=== PATIENT | male | born 1955 | race Caucasian/White ===

== ENCOUNTER 2018-11-19 16:08 | Inpatient (IN) | payer MEDICAID ==
[~2018-11-19] VITALS: Ht 152.4 cm; Wt 67.4 kg
[2018-11-19 16:10] VITALS: Ht 152.4 cm; Wt 67.4 kg
--- NOTE | 2018-11-19 17:53 | ERD ---
ER Documentation Chief Complaint Chief Complaint INGROWN TOE NAIL TO R BIG TOE HPI Patient is a Yakut speaking 63-year-old male with history of alcohol use several years ago presents to the ED with his sister with complaints of right toe pain. 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 He has tried applying himd-msa-[id number] creams and steroids as well as salt water baths without any relief. He states pain is worse when walking. He was seen at a clinic at a clinic this morning who referred him here to rule out gangrene and cellulitis of the big toe. 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 He denies any associated fevers, chills, drainage, numbness, tingling, focal weakness. Denies any chest pain, abdominal pain, shortness of breath, any other symptoms. Denies any trauma to his foot. ROS All systems reviewed and are negative except as per history of present illness. Allergies Allergies: Coded Allergies: No Known Allergy (Unverified , 11/19/18) PMhx/Soc Medical and Surgical Hx: pt denies Surgical Hx Hx Alcohol Use: Yes Physical Exam Vitals Vital Signs Date Temp Pulse Resp B/P (MAP) Pulse Ox O2 O2 Flow FiO2 Time Delivery Rate 11/19/18 98.0 78 18 160/80 99 16:10 (106) Physical Exam Const: No acute distress Head: Atraumatic Eyes: Normal Conjunctiva ENT: Normal External Ears, Nose and Mouth. Neck: Full range of motion. No meningismus. Resp: Clear to auscultation bilaterally Cardio: Regular rate and rhythm, no murmurs Abd: Soft, non tender, non distended. Normal bowel sounds Lower Extremity - right Skin: + Right big toe swelling with minimal warmth. Dark, overlying scab on superior aspect of big toe Compartments: Soft Motor: Full active range of motion hip/knee/ankle/foot Sensation: Intact to light touch FDWS/MF/LF/P surfaces. Bones: + Mild TTP of right big toe. Nontender pelvis/knee/proximal tibia/ malleoli Joints: No effusion or laxity Pulses/Perfusion: + Decreased DP/PT pulses. Cap refill < 2 seconds Back: No midline or flank tenderness Ext: No cyanosis, or edema Neur: Awake and alert Psych: Normal Mood and Affect Result Diagram: 11/19/18180111/19/18 180 Results 24 hrs Laboratory Tests Test 11/19/18 18:02 11/19/18 18:04 11/19/18 19:08 11/19/18 19:52 White Blood Count 9.4 10^3/ul Red Blood Count 4.81 10^6/ul Hemoglobin 13.9 g/dl Hematocrit 40.0 % Mean Corpuscular 83.2 fl Volume Mean Corpuscular 28.9 pg Hemoglobin Mean Corpuscular 34.8 g/dl Hemoglobin Concent Red Cell 11.7 % Distribution Width Platelet Count 191 10^3/UL Mean Platelet 12.0 fl Volume Immature 0.300 % Granulocytes % Neutrophils % 68.0 % Lymphocytes % 20.2 % Monocytes % 9.6 % Eosinophils % 1.6 % Basophils % 0.3 % Nucleated Red Blood 0.0 /100WBC Cells % Immature 0.030 10^3/ul Granulocytes # Neutrophils # 6.4 10^3/ul Lymphocytes # 1.9 10^3/ul Monocytes # 0.9 10^3/ul Eosinophils # 0.2 10^3/ul Basophils # 0.0 10^3/ul Nucleated Red Blood 0.0 10^3/ul Cells # Erythrocyte 50 mm/Hr Sedimentation Rate Prothrombin Time 11.9 Sec Prothrombin Time 0.9 Ratio INR International 0.87 Normalized Ratio Activated 22.5 Sec Partial Thromboplas t Time Sodium Level 131 mmol/L Potassium Level 4.4 mmol/L Chloride Level 95 mmol/L Carbon Dioxide 27 mmol/L Level Anion Gap 9 Blood Urea Nitrogen 24 mg/dl Creatinine 0.92 mg/dl Est Glomerular > 60 mL/min Filtrat Rate mL/min Glucose Level 452 mg/dl Calcium Level 9.5 mg/dl Total Bilirubin 0.1 mg/dl Direct Bilirubin 0.00 mg/dl Indirect Bilirubin 0.1 mg/dl Aspartate Amino 29 IU/L Transf (AST/SGOT) Alanine 23 IU/L Aminotransferase (A LT/SGPT) Alkaline 150 IU/L Phosphatase C-Reactive Protein 2.3 mg/dl Total Protein 7.5 g/dl Albumin 4.0 g/dl Globulin 3.50 g/dl Albumin/Globulin 1.14 Ratio POC Venous Lactate 1.4 mmol/L Bedside Glucose 388 mg/dL 329 mg/dL Test 2/15/19 20:52 Bedside Glucose 276 mg/dL Current Medications Medications Dose Sig/Sylvester Start Time Status Last (Trade) Ordered Route PRN Stop Time Admin Dose Reason Admin Sodium 1,000 ml @ Q1H STAT 11/19/18 DC 11/19/18 Chloride 1,000 mls/hr IV 18:40 19:24 11/19/18 19:39 Insulin 10 unit ONCE STAT 11/19/18 DC Human IVP 18:40 Regular 11/19/18 19:23 (Humulin R) Dextrose ONCE PRN 11/19/18 (D50w IV DECREASED 19:00 Syringe) GLUCOSE Insulin 10 unit ONCE ONCE 11/19/18 DC 11/19/18 Human SC 19:30 19:27 Regular 11/19/18 19:31 (Humulin R) Cefepime HCl 50 ml @ ONCE STAT 11/19/18 100 mls/hr IVPB 21:46 11/19/18 22:15 Vancomycin 250 ml @ ONCE ONCE 11/19/18 HCl 125 mls/hr IVPB 22:00 11/19/18 23:59 Procedures/MDM EMERGENT LABS AND DIAGNOSTIC STUDIES: Lab Results above were reviewed and interpreted by me as below. CBC: H/H of 13.9, 40 without no e/o of systemic infection or severe anemia CMP: Glucose 452. No e/o severe acidosis, alkalosis, renal failure, diabetic ketoacidosis, liver disease ESR: elevated, 50 Otherwise within normal limits, unremarkable or as documented above. Radiology Results as interpreted by Radiology: PROCEDURE: XR right Foot. CLINICAL INDICATION: r/o osteomyelitis TECHNIQUE: AP, lateral and oblique views of the right foot were obtained. The images were reviewed on a PACS workstation. COMPARISON: None. FINDINGS: No acute fracture is identified. No focal erosive changes are seen. Alignment and mineralization are normal. The joint spaces are preserved. No significant degenerative changes. Small bone spur seen at the plantar fascial insertion onto the calcaneus. Diffuse vascular atherosclerotic calcifications are noted. There is soft tissue swelling to the right great toe. IMPRESSION: Right great toe soft tissue swelling. No acute bony abnormality identified. Calcaneal bone spur. RPTAT:HCLE Electronically Signed By: Denzel King M.d 11/19/2018 6:59:00 PM Nursing Notes Reviewed. Previous Medical Records requested via the Electronic Health Record. EMERGENCY DEPARTMENT COURSE / MEDICAL DECISION MAKING: Patient is a Yakut-speaking 63-year-old male who is brought in by family with complaints of right toe swelling and pain. Patient went to an outside clinic earlier today and was subsequently sent here to rule out osteomyelitis and cell ulitis of the toe. On physical exam, patient does have evidence of soft tissue swelling and pain along with scab on the superior aspect of the right toe. X- ray of the toe was obtained revealing no acute abnormality. CBC showed no signs of infection, however ESR was elevated. He also did have some mild anemia. CMP showed signs of dehydration, and glucose was elevated at 452. Patient and family deny any known history of diabetes however patient has poor follow-up and does not see a regular doctor. And did not have any evidence of metabolic acidosis or DKA on labs. Patient was treated with IV fluids and also given 10 units of regular insulin in the ED. I spoke with family at bedside discussed options for admission for care and evaluation of his cellulitis as well as his new onset diabetes. Care was transferred to my surviving physician, Dr. Barrios, who will admit the patient. Patient is stable at time of admission. He was started on broad-spectrum IV antibiotics for prophylactic coverage. Departure Diagnosis: Primary Impression: Cellulitis of right toe Additional Impressions: Diabetes mellitus Anemia Condition: Fair DISHIGRIKIANSANTIAGO PA-C Nov 19, 2018 17:53
[2018-11-19] MEDS ORDERED: INSULIN REGULAR, HUMAN 100 UNIT/1 ML 3ML VIAL IVP STA (18:40)
[2018-11-19] MEDS ORDERED: SOD CHLORIDE 0.9% 1,000 ML IV STA (18:40)
[2018-11-19] MEDS ORDERED: DEXTROSE 50% 50 ML SYRINGE IV PRN (19:00)
[2018-11-19] MEDS ORDERED: INSULIN REGULAR, HUMAN 100 UNIT/1 ML 3ML VIAL SC ONE (19:30)
[2018-11-19] MEDS ORDERED: CEFEPIME 2GM/50 ML (PMX) 50 ML IVPB STA (21:46)
[2018-11-19] MEDS ORDERED: VANCOMYCIN 1 GM (PMX) 250 ML IVPB ONE (22:00)
--- NOTE | 2018-11-19 23:39 | EN ---
Date/Time of Note Date/Time of Note DATE: 11/19/18 TIME: 23:37 ER Progress Note I have discussed the patient along with the PA and/or [employer] provider. I agree with the evaluation and plan of care. Please see their documentation for full ER course and evaluation. In short: The patient was sent for evaluation of toe gangrene to rule out osteomyelitis Assessment and plan: The patient has elevated ESR and CRP. While this is a subacute process the patient has extremely poor primary care follow-up. The patient has hyperglycemia is not taking any medications. No evidence of DKA. Humalog provided. Patient given to broad-spectrum antibiotics. No evidence of sepsis. Inpatient hospitalization for MRI imaging, podiatry evaluation and primary care referral would be appropriate Accepting care team and consultations: I discussed the current laboratory data, diagnostic imaging and emergency care provided. Admitting team: Dr. Chao Admitting team indication: Insurance directed RAYO MERINO MD Nov 19, 2018 23:39
[2018-11-20] MEDS ORDERED: ONDANSETRON 4 MG INJ IV PRN
[2018-11-20] MEDS ORDERED: ACETAMINOPHEN 325 MG TAB PO PRN
[2018-11-20] MEDS: hydrALAzine 20 MG INJ IV PRN ×2 (03:57→21:53)
[2018-11-20 04:06] VITALS: BP 186/81; PULSE 71; RESP 18
[2018-11-20] MEDS ORDERED: SOD CHLORIDE 0.9% 1,000 ML IV SCH (04:06)
--- NOTE | 2018-11-20 04:22 | HP ---
Date/Time of Note Date/Time of Note DATE: 11/20/18 TIME: 04:22 Assessment/Plan VTE Prophylaxis Pharmacological prophylaxis: other Lines/Catheters IV Catheter Type (from Nrsg): Saline Lock Assessment/Plan Hospital Course Objective Physical exam General: Patient is laying in bed and answers questions appropriately Mentation: Patient is alert and oriented 4, Head: Normocephalic atraumatic Eyes: EOMI, pupils reactive to light Neck: Supple, nontender, midline Respiratory: Clear to auscultation bilaterally Cardiovascular: regular rate, no obvious murmurs Gastrointestinal: non-tender to palpation, bowel sounds heard. Neurological: Moves all extremities spontaneously Skin: Right great toe, black eschar Assessment and plan Right toe gangrene -X-ray done but not resulted, will also order MRI to rule out osteo- -IV antibiotic, it is recommended for day team to consult infectious disease -Day team will need to consult podiatry to evaluate toe. -Pain control Uncontrolled diabetes -Patient not on any medications, severely hyperglycemic however relatively asymptomatic -A1c is pending -Insulin sliding scale for now, adjust as needed Disposition -Day physician to consult podiatry and infectious disease and to follow-up with MRI. Result Diagram: 11/19/18 1802 11/19/18 1802 Results 24hrs Laboratory Tests Test 11/19/18 18:02 11/19/18 18:04 11/19/18 19:08 11/19/18 19:52 White Blood Count 9.4 Red Blood Count 4.81 Hemoglobin 13.9 L Hematocrit 40.0 L Mean Corpuscular 83.2 Volume Mean Corpuscular 28.9 L Hemoglobin Mean Corpuscular 34.8 Hemoglobin Concent Red Cell 11.7 Distribution Width Platelet Count 191 Mean Platelet Volume 12.0 H Immature 0.300 Granulocytes % Neutrophils % 68.0 Lymphocytes % 20.2 Monocytes % 9.6 Eosinophils % 1.6 Basophils % 0.3 Nucleated Red Blood 0.0 Cells % Immature 0.030 Granulocytes # Neutrophils # 6.4 Lymphocytes # 1.9 Monocytes # 0.9 Eosinophils # 0.2 Basophils # 0.0 Nucleated Red Blood 0.0 Cells # Erythrocyte 50 H Sedimentation Rate Prothrombin Time 11.9 Prothrombin Time 0.9 Ratio INR International 0.87 Normalized Ratio Activated 22.5 L Partial Thromboplast Time Sodium Level 131 L Potassium Level 4.4 Chloride Level 95 L Carbon Dioxide Level 27 Anion Gap 9 Blood Urea Nitrogen 24 H Creatinine 0.92 Est Glomerular > 60 Filtrat Rate mL/min Glucose Level 452 *H Calcium Level 9.5 Total Bilirubin 0.1 L Direct Bilirubin 0.00 Indirect Bilirubin 0.1 Aspartate Amino 29 Transf (AST/SGOT) Alanine 23 Aminotransferase (AL T/SGPT) Alkaline Phosphatase 150 H C-Reactive Protein 2.3 H Total Protein 7.5 Albumin 4.0 Globulin 3.50 H Albumin/Globulin 1.14 Ratio POC Venous Lactate 1.4 Bedside Glucose 388 H 329 H Test 11/19/18 20:52 11/19/18 21:57 11/20/18 03:56 Bedside Glucose 276 H 155 Lactic Acid Level 1.1 HPI/ROS Admit Date/Time Admit Date/Time Nov 19, 2018 at 23:36 Hx of Present Illness Patient is a male with no sniffing past medical history secondary to having no insurance not seeing doctors in many years who presents to [facility] after being sent by his clinic. Patient was urged to go to the clinic by his sister after he was suffering from an toe issue on his right great toe. Patient states that it began with redness and swelling to his right big toe approximately 3 weeks ago and he tried [id number] creams and steroids and it did not help. 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 Patient currently d enies any abdominal pain chest pain shortness of breath headache nausea, vomiting leg pain except for pain in the great toe. PMH/Family/Social Past Medical History Medications Current Medications Dextrose (D50w Syringe) ONCE PRN IV DECREASED GLUCOSE; Start 11/19/18 at 19:00 Ondansetron HCl (Zofran Inj) 4 mg BRIDGE ORDER PRN IV NAUSEA/VOMITING; Start 11/20/18 at 00:00; Stop 11/20/18 at 23:59 Acetaminophen (Tylenol Tab) 650 mg ER BRIDGE PRN PO .MILD PAIN 1-3 OR TEMP; Start 11/20/18 at 00:00; Stop 11/20/18 at 23:59 Hydralazine HCl (Apresoline) 10 mg Q4H PRN IV sbp>160 Last administered on 11/20/18at 03:57; Admin Dose 10 MG; Start 11/20/18 at 04:00 Cefepime HCl 50 ml @ 100 mls/hr Q12 IVPB ; Start 11/20/18 at 09:00; Status UNV Vancomycin HCl (Vanco Iv Per Pharmacy) VANCOMYCIN PER PHARMACY PER PROTOCOL XX ; Start 11/20/18 at 04:30; Status UNV Sodium Chloride 1,000 ml @ 50 mls/hr Q20H IV ; Start 11/20/18 at 04:06; Stop 11/21/18 at 00:05; Status UNV IV Flush (NS 3 ml) 3 ml PER PROTOCOL IV ; Start 11/20/18 at 04:30; Status UNV Ondansetron HCl (Zofran Inj) 4 mg Q6H PRN IV NAUSEA/VOMITING; Start 11/20/18 at 04:30; Status UNV Acetaminophen (Tylenol Tab) 650 mg Q6H PRN PO .PAIN 1-3 OR TEMP; Start 11/20/18 at 04:30; Status UNV Acetaminophen/ Hydrocodone Bitart ([place] (5/325)) 1 tab Q6H PRN PO .PAIN 4-6; Start 11/20/18 at 04:30; Status UNV Morphine Sulfate (morphine) 2 mg Q4H PRN IV .PAIN 7-10; Start 11/20/18 at 04:30; Status UNV Miscellaneous Information (* Miscellaneous Pharmacy Order) Discontinue current oral sulfonylur... ONCE ONCE XX ; Start 11/20/18 at 04:30; Stop 11/20/18 at 04:31; Status UNV Diagnostic Test (Pha) (Accu-Chek) 1 XX ; Start 11/21/18 at 02:00; Status UNV Miscellaneous Information (* Miscellaneous Pharmacy Order) HYPOGLYCEMIA PROTOCOL w... ONCE ONCE XX ; Start 11/20/18 at 04:30; Stop 11/20/18 at 04:31; Status UNV Insulin Aspart (Novolog Insulin Pen) NOVOLOG *MILD* ALGORITHM WITH MEALS BEDTIME SC ; Start 11/20/18 at 08:00; Status UNV Miscellaneous Information (* Miscellaneous Pharmacy Order) Discontinue all previ... ONCE ONCE XX ; Start 11/20/18 at 04:30; Stop 11/20/18 at 04:31; Status UNV Coded Allergies: No Known Allergy (Unverified , 11/19/18) Social History Smoking Status: Former smoker Exam/Review of Systems Vital Signs Vitals Vital Signs Date Temp Pulse Resp B/P (MAP) Pulse Ox O2 O2 Flow FiO2 Time Delivery Rate 11/20/18 97.8 71 18 186/81 95 04:06 (116) 11/20/18 Room Air 02:45 Intake and Output 11/19/18 11/19/18 11/20/18 1515:00 23:00 07:00 IntakeIntake Total 1050 ml 250 ml BalanceBalance 1050 ml 250 ml CICI ARVIZU Nov 20, 2018 04:22
[2018-11-20] MEDS ORDERED: morphine 2 MG INJ IV PRN (04:30)
[2018-11-20] MEDS ORDERED: GLUCOSE GEL 15 GRAM TUBE BUCCAL PRN (04:30)
[2018-11-20] MEDS ORDERED: GLUCAGON 1 MG INJ IM PRN (04:30)
[2018-11-20] MEDS ORDERED: GLUCOSE GEL 15 GRAM TUBE PO PRN ×2 (04:30)
[2018-11-20] MEDS ORDERED: VANCOMYCIN IV PER PHARMACY XX SCH (04:30)
[2018-11-20] MEDS ORDERED: NACL 0.9% 3 ML SYG IV SCH (04:30)
[2018-11-20] MEDS ORDERED: DEXTROSE 50% 50 ML SYRINGE IV PRN ×2 (04:30)
[2018-11-20] MEDS: INSULIN ASPART [NOVOLOG] 3 ML PEN SC SCH ×4 (08:00→20:48)
[2018-11-20 08:14] VITALS: BP 165/72; PULSE 87; RESP 18
[2018-11-20] MEDS: CEFEPIME 1GM/50 ML (PMX) 50 ML IVPB SCH ×2 (08:18→20:48)
[2018-11-20] MEDS: VANCOMYCIN 1 GM 250 ML IVPB SCH ×2 (10:08→21:51)
--- NOTE | 2018-11-20 10:42 | PN ---
Date/Time of Note Date/Time of Note DATE: 11/20/18 TIME: 10:38 Assessment/Plan VTE Prophylaxis SCD contraindicated: low risk/ambulating Pharmacological prophylaxis: heparin Lines/Catheters IV Catheter Type (from Nrs): Saline Lock Assessment/Plan Problems: (1) Cellulitis of right toe Status: Acute Comment: He actually has a gangrenous tip of the toe. I have contacted podiatry who will see him. This should be able to be cleaned up and treated as an outpatient relatively quickly. (2) Diabetes mellitus Status: Acute Comment: I will try and get his sugars under better control. He has not been on any medicines as an outpatient. Qualifiers: Diabetes mellitus type: type 2 Diabetes mellitus mcc insulin use: without buttermaker use Diabetes mellitus complication status: with neurologic complications Diabetes mellitus complication detail: with polyneuropathy Qualified Codes: E11.42 - Type 2 diabetes mellitus with diabetic polyneuropathy (3) Anemia Status: Acute Comment: This will be worked up Result Diagram: 11/20/18 0518 11/20/18 0559 Results 24hrs Laboratory Tests Test 11/19/18 18:02 11/19/18 18:04 11/19/18 19:08 11/19/18 19:52 White Blood Count 9.4 Red Blood Count 4.81 Hemoglobin 13.9 L Hematocrit 40.0 L Mean Corpuscular 83.2 Volume Mean Corpuscular 28.9 L Hemoglobin Mean Corpuscular 34.8 Hemoglobin Concent Red Cell 11.7 Distribution Width Platelet Count 191 Mean Platelet Volume 12.0 H Immature 0.300 Granulocytes % Neutrophils % 68.0 Lymphocytes % 20.2 Monocytes % 9.6 Eosinophils % 1.6 Basophils % 0.3 Nucleated Red Blood 0.0 Cells % Immature 0.030 Granulocytes # Neutrophils # 6.4 Lymphocytes # 1.9 Monocytes # 0.9 Eosinophils # 0.2 Basophils # 0.0 Nucleated Red Blood 0.0 Cells # Erythrocyte 50 H Sedimentation Rate Prothrombin Time 11.9 Prothrombin Time 0.9 Ratio INR International 0.87 Normalized Ratio Activated 22.5 L Partial Thromboplast Time Sodium Level 131 L Potassium Level 4.4 Chloride Level 95 L Carbon Dioxide Level 27 Anion Gap 9 Blood Urea Nitrogen 24 H Creatinine 0.92 Est Glomerular > 60 Filtrat Rate mL/min Glucose Level 452 *H Calcium Level 9.5 Total Bilirubin 0.1 L Direct Bilirubin 0.00 Indirect Bilirubin 0.1 Aspartate Amino 29 Transf (AST/SGOT) Alanine 23 Aminotransferase (AL T/SGPT) Alkaline Phosphatase 150 H C-Reactive Protein 2.3 H Total Protein 7.5 Albumin 4.0 Globulin 3.50 H Albumin/Globulin 1.14 Ratio POC Venous Lactate 1.4 Bedside Glucose 388 H 329 H Test 11/19/18 20:52 11/19/18 21:57 11/20/18 03:56 11/20/18 05:18 Bedside Glucose 276 H 155 Lactic Acid Level 1.1 White Blood Count 8.6 Red Blood Count 4.23 L Hemoglobin 12.3 L Hematocrit 35.3 L Mean Corpuscular 83.5 Volume Mean Corpuscular 29.1 Hemoglobin Mean Corpuscular 34.8 Hemoglobin Concent Red Cell 11.7 Distribution Width Platelet Count 156 Mean Platelet Volume 11.8 H Immature 0.500 H Granulocytes % Neutrophils % 65.8 Lymphocytes % 21.7 Monocytes % 9.1 Eosinophils % 2.4 Basophils % 0.5 Nucleated Red Blood 0.0 Cells % Immature 0.040 H Granulocytes # Neutrophils # 5.7 Lymphocytes # 1.9 Monocytes # 0.8 Eosinophils # 0.2 Basophils # 0.0 Nucleated Red Blood 0.0 Cells # Test 11/20/18 05:59 11/20/18 07:53 Sodium Level 135 Potassium Level 3.9 Chloride Level 98 Carbon Dioxide Level 28 Anion Gap 9 Blood Urea Nitrogen 17 Creatinine 0.89 Est Glomerular > 60 Filtrat Rate mL/min Glucose Level 310 H Calcium Level 8.6 Magnesium Level 1.4 L Total Bilirubin 0.3 Direct Bilirubin 0.00 Indirect Bilirubin 0.3 Aspartate Amino 18 Transf (AST/SGOT) Alanine 27 Aminotransferase (AL T/SGPT) Alkaline Phosphatase 75 Total Protein 6.1 # Albumin 3.0 #L Globulin 3.10 Albumin/Globulin 0.96 Ratio Triglycerides Level 123 Cholesterol Level 131 LDL Cholesterol, 80 Calculated HDL Cholesterol 26 L Cholesterol/HDL 5.0 Ratio Thyroid Stimulating 2.870 Hormone (TSH) Bedside Glucose 294 H Subjective 24 Hr Interval Summary Free Text/Dictation Patient was admitted essentially for poor sugar control and of the gangrenous tip of the toe. Constitutional: no complaints Respiratory: no complaints Cardiovascular: no complaints Gastrointestinal: no complaints Genitourinary: no complaints Exam/Review of Systems Exam Vitals Vital Signs Date Temp Pulse Resp B/P (MAP) Pulse Ox O2 O2 Flow FiO2 Time Delivery Rate 11/20/18 98.5 87 18 165/72 90 08:14 (103) 11/20/18 Room Air 02:45 Intake and Output 11/19/18 11/19/18 11/20/18 1515:00 23:00 07:00 IntakeIntake Total 1050 ml 250 ml BalanceBalance 1050 ml 250 ml Constitutional: alert, oriented Respiratory: clear to auscultation, normal air movement Cardiovascular: regular rate and rhythm, nl pulses Gastrointestinal: soft, nl liver, spleen, non-tender Results Results 24hrs Laboratory Tests Test 11/19/18 18:02 11/19/18 18:04 11/19/18 19:08 11/19/18 19:52 White Blood Count 9.4 Red Blood Count 4.81 Hemoglobin 13.9 L Hematocrit 40.0 L Mean Corpuscular 83.2 Volume Mean Corpuscular 28.9 L Hemoglobin Mean Corpuscular 34.8 Hemoglobin Concent Red Cell 11.7 Distribution Width Platelet Count 191 Mean Platelet Volume 12.0 H Immature 0.300 Granulocytes % Neutrophils % 68.0 Lymphocytes % 20.2 Monocytes % 9.6 Eosinophils % 1.6 Basophils % 0.3 Nucleated Red Blood 0.0 Cells % Immature 0.030 Granulocytes # Neutrophils # 6.4 Lymphocytes # 1.9 Monocytes # 0.9 Eosinophils # 0.2 Basophils # 0.0 Nucleated Red Blood 0.0 Cells # Erythrocyte 50 H Sedimentation Rate Prothrombin Time 11.9 Prothrombin Time 0.9 Ratio INR International 0.87 Normalized Ratio Activated 22.5 L Partial Thromboplast Time Sodium Level 131 L Potassium Level 4.4 Chloride Level 95 L Carbon Dioxide Level 27 Anion Gap 9 Blood Urea Nitrogen 24 H Creatinine 0.92 Est Glomerular > 60 Filtrat Rate mL/min Glucose Level 452 *H Calcium Level 9.5 Total Bilirubin 0.1 L Direct Bilirubin 0.00 Indirect Bilirubin 0.1 Aspartate Amino 29 Transf (AST/SGOT) Alanine 23 Aminotransferase (AL T/SGPT) Alkaline Phosphatase 150 H C-Reactive Protein 2.3 H Total Protein 7.5 Albumin 4.0 Globulin 3.50 H Albumin/Globulin 1.14 Ratio POC Venous Lactate 1.4 Bedside Glucose 388 H 329 H Test 11/19/18 20:52 11/19/18 21:57 11/20/18 03:56 11/20/18 05:18 Bedside Glucose 276 H 155 Lactic Acid Level 1.1 White Blood Count 8.6 Red Blood Count 4.23 L Hemoglobin 12.3 L Hematocrit 35.3 L Mean Corpuscular 83.5 Volume Mean Corpuscular 29.1 Hemoglobin Mean Corpuscular 34.8 Hemoglobin Concent Red Cell 11.7 Distribution Width Platelet Count 156 Mean Platelet Volume 11.8 H Immature 0.500 H Granulocytes % Neutrophils % 65.8 Lymphocytes % 21.7 Monocytes % 9.1 Eosinophils % 2.4 Basophils % 0.5 Nucleated Red Blood 0.0 Cells % Immature 0.040 H Granulocytes # Neutrophils # 5.7 Lymphocytes # 1.9 Monocytes # 0.8 Eosinophils # 0.2 Basophils # 0.0 Nucleated Red Blood 0.0 Cells # Test 11/20/18 05:59 11/20/18 07:53 Sodium Level 135 Potassium Level 3.9 Chloride Level 98 Carbon Dioxide Level 28 Anion Gap 9 Blood Urea Nitrogen 17 Creatinine 0.89 Est Glomerular > 60 Filtrat Rate mL/min Glucose Level 310 H Calcium Level 8.6 Magnesium Level 1.4 L Total Bilirubin 0.3 Direct Bilirubin 0.00 Indirect Bilirubin 0.3 Aspartate Amino 18 Transf (AST/SGOT) Alanine 27 Aminotransferase (AL T/SGPT) Alkaline Phosphatase 75 Total Protein 6.1 # Albumin 3.0 #L Globulin 3.10 Albumin/Globulin 0.96 Ratio Triglycerides Level 123 Cholesterol Level 131 LDL Cholesterol, 80 Calculated HDL Cholesterol 26 L Cholesterol/HDL 5.0 Ratio Thyroid Stimulating 2.870 Hormone (TSH) Bedside Glucose 294 H Medications Medication Current Medications Hydralazine HCl (Apresoline) 10 mg Q4H PRN IV sbp>160 Last administered on 11/20/18at 03:57; Admin Dose 10 MG; Start 11/20/18 at 04:00 Cefepime HCl 50 ml @ 100 mls/hr Q12 IVPB Last administered on 11/20/18at 08:18; Admin Dose 100 MLS/HR; Start 11/20/18 at 09:00 Vancomycin HCl (Vanco Iv Per Pharmacy) VANCOMYCIN PER PHARMACY PER PROTOCOL XX ; Start 11/20/18 at 04:30 Sodium Chloride 1,000 ml @ 50 mls/hr Q20H IV Last administered on 11/20/18at 05:07; Admin Dose 50 MLS/HR; Start 11/20/18 at 04:06; Stop 11/21/18 at 00:05 IV Flush (NS 3 ml) 3 ml PER PROTOCOL IV ; Start 11/20/18 at 04:30 Ondansetron HCl (Zofran Inj) 4 mg Q6H PRN IV NAUSEA/VOMITING; Start 11/20/18 at 04:30 Acetaminophen (Tylenol Tab) 650 mg Q6H PRN PO .PAIN 1-3 OR TEMP; Start 11/20/18 at 04:30 Acetaminophen/ Hydrocodone Bitart ([place] (5/325)) 1 tab Q6H PRN PO .PAIN 4-6; Start 11/20/18 at 04:30 Morphine Sulfate (morphine) 2 mg Q4H PRN IV .PAIN 7-10; Start 11/20/18 at 04:30 Diagnostic Test (Pha) (Accu-Chek) 1 ea 02 XX ; Start 11/21/18 at 02:00 Insulin Aspart (Novolog Insulin Pen) NOVOLOG *MILD* ALGORITHM WITH MEALS BEDTIME SC Last administered on 11/20/18at 08:00; Admin Dose 4 UNIT; Start 11/20/18 at 08:00 Miscellaneous Information 1 ea NOTE XX ; Start 11/20/18 at 04:30 Glucose (Glutose) 15 gm Q15M PRN PO DECREASED GLUCOSE; Start 11/20/18 at 04:30 Glucose (Glutose) 22.5 gm Q15M PRN PO DECREASED GLUCOSE; Start 11/20/18 at 04:30 Dextrose (D50w Syringe) 25 ml Q15M PRN IV DECREASED GLUCOSE; Start 11/20/18 at 04:30 Dextrose (D50w Syringe) 50 ml Q15M PRN IV DECREASED GLUCOSE; Start 11/20/18 at 04:30 Glucagon (Glucagen) 1 mg Q15M PRN IM DECREASED GLUCOSE; Start 11/20/18 at 04:30 Glucose (Glutose) 15 gm Q15M PRN BUCCAL DECREASED GLUCOSE; Start 11/20/18 at 04:30 Vancomycin HCl 250 ml @ 125 mls/hr Q12H IVPB Last administered on 11/20/18at 10:08; Admin Dose 125 MLS/HR; Start 11/20/18 at 10:00 KARI YOON MD Nov 20, 2018 10:42
[2018-11-20] MEDS: ACCU-CHEK XX SCH ×3 (11:30→20:48)
[2018-11-20] MEDS: NATEGLINIDE 120 MG TAB PO SCH ×2 (12:31→17:29)
[2018-11-20] MEDS: metFORMIN 850 MG TAB PO SCH ×2 (12:31→17:28)
--- NOTE | 2018-11-20 18:40 | CONS ---
DATE OF ADMISSION: 11/19/2018 DATE OF CONSULTATION: 11/20/2018 REASON FOR CONSULTATION: Right foot cutaneous ulceration with gangrene. HISTORY OF PRESENT ILLNESS: This is a 63-year-old gentleman who states he was working in his garden and resulted in swelling, redness, now with black colored tissue and brought in due to failing outpat ient self-treatments. PAST MEDICAL HISTORY: Includes diabetes type 2 with peripheral neuropathy, anemia. MEDICATIONS: Includes vancomycin, cefepime. 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 PHYSICAL EXAMINATION: VITAL SIGNS: Temperature is 98.5, pulse is 87, respiratory rate is 18, blood pressure is 165/72, pul se ox is 98%. GENERAL: The patient is alert, oriented, no acute distress. Regular respiration. HEENT: Head is normocephalic. Trachea midline. EXTREMITIES: The patient with a nonpalpable PT, DP or popliteal pulse. The DP artery on the right f oot is palpable and heavily calcified. There is a cutaneous gangrene of the right hallux distal aspe ct measuring approximately 2 x 1 cm depth that is undetermined, but well adhered. No cellulitis. No malodor. No active drainage. There is pain with palpation. No instability of the hallux at the IP J or MPJ. LABORATORIES: WBC 8.6, hemoglobin 12.3, hematocrit 35.3, platelets 156. Sed rate is 50. Sodium 135 , potassium 3.9, chloride 98, CO2 28, BUN 17, creatinine is 0.89. X-rays pending. MRI pending. Non invasive is pending. ASSESSMENT: 1. Right foot cutaneous ulceration with gangrene. Differential diagnosis osteomyelitis, distal phal anx. 2. Diabetes type 2 with peripheral neuropathy. 3. Peripheral arterial disease. PLAN: H and P reviewed. Continue empiric antibiotics. No fluid available for culture. Imaging tara dies ordered and pending. Recommend obtaining arterial noninvasives. If no radiographic evidence of osteomyelitis, no surgery planned. Further recommendations regarding wound healing potential with v ascular studies given decreased pulses, would benefit from a vascular consultation. Nursing recommen dations are given for local wound care. Given diabetic history and ulceration, would benefit from ou tpatient followup. Recommend case management assistance to assist with continuity of care and insura nce assignment. Dictated By: JAY JAY MONSIVAIS DPM RB/NTS Conf#: [id number] DID#: [id number] CC: CICI ARVIZU MD;*End*
[2018-11-20 21:05] VITALS: BP 192/85; PULSE 80; RESP 16
[2018-11-20 22:00] VITALS: BP 143/65; PULSE 77
[2018-11-21] MEDS ORDERED: traZODone 50 MG TAB PO PRN (00:40)
[2018-11-21 02:00] VITALS: BP 154/70; PULSE 79; RESP 18
[2018-11-21] MEDS: ACCU-CHEK XX SCH ×5 (02:00→21:06)
[2018-11-21 08:03] VITALS: BP 165/72; PULSE 73; RESP 16
[2018-11-21] MEDS: NATEGLINIDE 120 MG TAB PO SCH ×3 (08:09→17:40)
[2018-11-21] MEDS: GENTAMICIN 0.1% 15 GM OINT TOP SCH (08:09)
[2018-11-21] MEDS: CEFEPIME 1GM/50 ML (PMX) 50 ML IVPB SCH ×2 (08:09→21:03)
[2018-11-21] MEDS: metFORMIN 850 MG TAB PO SCH ×2 (08:09→17:40)
[2018-11-21] MEDS: SODIUM HYPOCHLORITE (1/40) 1 APPLIC BTL IRR SCH (08:09)
[2018-11-21] MEDS: INSULIN ASPART [NOVOLOG] 3 ML PEN SC SCH ×4 (08:11→21:00)
--- NOTE | 2018-11-21 09:43 | PN ---
Date/Time of Note Date/Time of Note DATE: 11/21/18 TIME: 09:40 Assessment/Plan VTE Prophylaxis Risk score (from Ns)>0 risk: 2 SCD applied (from Ns): Yes Pharmacological prophylaxis: heparin Lines/Catheters IV Catheter Type (from [facility]): Peripheral IV Assessment/Plan Problems: (1) Toe gangrene Status: Acute Comment: Dry gangrene with no obvious site of infection. This should be able to be managed as an outpatient but we may need to make sure that nothing falls through the cracks in this gentleman. In addition he has evidence of peripheral vascular disease. Please see below. Management to assist with making sure that we have things lined up so that he can be seen as an outpatient (2) Peripheral vascular disease due to secondary diabetes Status: Chronic Comment: Even though he is very good cholesterol is is can be placed on low- dose statin therapy for this. In addition we will try and tighten up his blood pressure control, and his diabetic control. (3) Essential hypertension Status: Chronic Comment: DEQUAN inhibitor and if possible we will add in alpha-salina medication for blood pressure pending at this time of the results of postvoid residual (4) Diabetes mellitus Status: Acute Comment: He is getting very good control on a fairly simple regimen. This should be able to be transmitted as an outpatient without great difficulty and the medications are not expensive. 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 use Diabetes mellitus complication status: with neurologic co mplications Diabetes mellitus complication detail: with polyneuropathy Qualified Codes: E11.42 - Type 2 diabetes mellitus with diabetic polyneuropathy (5) Anemia Status: Acute Comment: Initial evaluation Qualifiers: Anemia type: unspecified type Qualified Codes: D64.9 - Anemia, unspecified Result Diagram: 11/20/18 0518 11/20/18 0559 Results 24hrs Laboratory Tests Test 11/20/18 12:28 11/20/18 17:25 11/20/18 20:47 11/21/18 08:08 Bedside Glucose 230 H 207 151 176 Test 11/21/18 08:51 Vancomycin Level 9.4 L Trough Subjective 24 Hr Interval Summary Free Text/Dictation He reports his foot is a little bit better. Constitutional: no complaints (No fevers chills or sweats) Respiratory: no complaints Cardiovascular: no complaints Gastrointestinal: no complaints Musculoskeletal: no complaints Endocrine: no complaints Exam/Review of Systems Exam Vitals Vital Signs Date Temp Pulse Resp B/P (MAP) Pulse Ox O2 O2 Flow FiO2 Time Delivery Rate 11/21/18 98.6 73 16 165/72 95 08:03 (103) 11/20/18 Room Air 02:45 Intake and Output 11/20/18 11/20/18 11/21/18 1515:00 23:00 07:00 IntakeIntake Total 1410 ml 1070 ml 250 ml OutputOutput Total 150 ml BalanceBalance 1260 ml 1070 ml 250 ml Constitutional: alert, oriented Respiratory: clear to auscultation, normal air movement Cardiovascular: regular rate and rhythm, nl pulses Gastrointestinal: soft, nl liver, spleen, non-tender Musculoskeletal: other (Gangrene distal tip of right great toe-dry) Results Results 24hrs Laboratory Tests Test 11/20/18 12:28 11/20/18 17:25 11/20/18 20:47 11/21/18 08:08 Bedside Glucose 230 H 207 151 176 Test 11/21/18 08:51 Vancomycin Level 9.4 L Trough Medications Medication Current Medications Hydralazine HCl (Apresoline) 10 mg Q4H PRN IV sbp>160 Last administered on 11/20/18at 21:53; Admin Dose 10 MG; Start 11/20/18 at 04:00 Cefepime HCl 50 ml @ 100 mls/hr Q12 IVPB Last administered on 11/21/18at 08:09; Admin Dose 100 MLS/HR; Start 11/20/18 at 09:00 Vancomycin HCl (Vanco Iv Per Pharmacy) VANCOMYCIN PER PHARMACY PER PROTOCOL XX ; Start 11/20/18 at 04:30 IV Flush (NS 3 ml) 3 ml PER PROTOCOL IV ; Start 11/20/18 at 04:30 Ondansetron HCl (Zofran Inj) 4 mg Q6H PRN IV NAUSEA/VOMITING; Start 11/20/18 at 04:30 Acetaminophen (Tylenol Tab) 650 mg Q6H PRN PO .PAIN 1-3 OR TEMP; Start 11/20/18 at 04:30 Acetaminophen/ Hydrocodone Bitart ([place] (5/325)) 1 tab Q6H PRN PO .PAIN 4-6; Start 11/20/18 at 04:30 Morphine Sulfate (morphine) 2 mg Q4H PRN IV .PAIN 7-10; Start 11/20/18 at 04:30 Diagnostic Test (Pha) (Accu-Chek) 1 ea 02 XX ; Start 11/21/18 at 02:00 Insulin Aspart (Novolog Insulin Pen) NOVOLOG *MILD* ALGORITHM WITH MEALS BEDTIME SC Last administered on 11/21/18at 08:11; Admin Dose 1 UNIT; Start 11/20/18 at 08:00 Miscellaneous Information 1 ea NOTE XX ; Start 11/20/18 at 04:30 Glucose (Glutose) 15 gm Q15M PRN PO DECREASED GLUCOSE; Start 11/20/18 at 04:30 Glucose (Glutose) 22.5 gm Q15M PRN PO DECREASED GLUCOSE; Start 11/20/18 at 04:30 Dextrose (D50w Syringe) 25 ml Q15M PRN IV DECREASED GLUCOSE; Start 11/20/18 at 04:30 Dextrose (D50w Syringe) 50 ml Q15M PRN IV DECREASED GLUCOSE; Start 11/20/18 at 04:30 Glucagon (Glucagen) 1 mg Q15M PRN IM DECREASED GLUCOSE; Start 11/20/18 at 04:30 Glucose (Glutose) 15 gm Q15M PRN BUCCAL DECREASED GLUCOSE; Start 11/20/18 at 04:30 Vancomycin HCl 250 ml @ 125 mls/hr Q12H IVPB Last administered on 11/20/18at 21:51; Admin Dose 125 MLS/HR; Start 11/20/18 at 10:00 Metformin HCl (Glucophage) 850 mg BID WITH MEALS PO Last administered on 11/21/18at 08:09; Admin Dose 850 MG; Start 11/20/18 at 11:00 Diagnostic Test (Pha) (Accu-Chek) 1 ea AC MEALS AND BEDTIME XX Last administered on 11/20/18at 20:48; Admin Dose 1 EA; Start 11/20/18 at 11:30 Nateglinide (Starlix) 120 mg AC MEALS PO Last administered on 11/21/18at 08:09; Admin Dose 120 MG; Start 11/20/18 at 11:30 Sodium Hypochlorite (Dakin'S (Dilute )) 1 applic DAILY IRR Last administered on 11/21/18at 08:09; Admin Dose 1 APPLIC; Start 11/21/18 at 09:00 Gentamicin Sulfate (Gentamicin 0.1% Oint) 1 applic DAILY TOP Last administered on 11/21/18at 08:09; Admin Dose 1 APPLIC; Start 11/21/18 at 09:00 Trazodone HCl (Desyrel) 50 mg HS PRN PO INSOMNIA; Start 11/21/18 at 00:40 Lisinopril (Zestril) 10 mg DAILY PO ; Start 11/21/18 at 10:00; Status KARI MORTON MD Nov 21, 2018 09:43
[2018-11-21] MEDS: VANCOMYCIN 1 GM 250 ML IVPB SCH (09:56)
[2018-11-21] MEDS: LISINOPRIL 10 MG TAB PO SCH (09:57)
[2018-11-21] MEDS ORDERED: SOD CHLORIDE 0.45% 1,000 ML IV SCH (10:00)
[2018-11-21] MEDS: HYDROCODONE/APAP (5/325) TAB PO PRN ×2 (10:09→21:42)
[2018-11-21 14:24] VITALS: BP 128/59; PULSE 76; RESP 16
[2018-11-21 20:00] VITALS: BP_SYST 120; BP_SYST 160; BP_DIAS 73; BP_DIAS 80; PULSE 78; RESP 18
[2018-11-21] MEDS: ATORVASTATIN 10 MG TAB PO SCH (21:06)
[2018-11-21] MEDS: VANCOMYCIN HCL 1.25 GM in SOD CHLORIDE 0.9% 250 ML IVPB SCH (21:42)
[2018-11-22 02:00] VITALS: BP 147/90; PULSE 68; RESP 18
[2018-11-22] MEDS: ACCU-CHEK XX SCH ×5 (02:00→20:20)
[2018-11-22 07:22] VITALS: BP 174/82; PULSE 72; RESP 16
[2018-11-22] MEDS: metFORMIN 850 MG TAB PO SCH ×2 (08:01→17:38)
[2018-11-22] MEDS: NATEGLINIDE 120 MG TAB PO SCH ×3 (08:01→17:36)
[2018-11-22] MEDS: INSULIN ASPART [NOVOLOG] 3 ML PEN SC SCH ×4 (08:02→20:20)
[2018-11-22] MEDS: LISINOPRIL 10 MG TAB PO SCH (08:03)
[2018-11-22] MEDS: CEFEPIME 1GM/50 ML (PMX) 50 ML IVPB SCH ×2 (08:04→20:15)
[2018-11-22] MEDS: GENTAMICIN 0.1% 15 GM OINT TOP SCH (08:06)
[2018-11-22] MEDS: SODIUM HYPOCHLORITE (1/40) 1 APPLIC BTL IRR SCH (08:06)
--- NOTE | 2018-11-22 08:48 | CONS ---
DATE OF ADMISSION: 11/19/2018 DATE OF CONSULTATION: 11/22/2018 REFERRING PHYSICIAN: Dr. Dru Baugh. REASON FOR CONSULTATION: Right first toe tip dry gangrene. HISTORY OF PRESENT ILLNESS: This is a 63-year-old gentleman. He basically does not get any outside medical care. He presented with 3 weeks of dry gangrene of the tip of the right great toe. He denie s being diabetic, although he is diabetic. He denies smoking. He has no pain in the toe. His gluco se was 452, so he is definitely diabetic despite the fact that he denies it. PAST MEDICAL HISTORY: Significant for untreated diabetes, peripheral arterial disease. PAST SURGICAL HISTORY: He has never had any surgery in the past. MEDICATIONS: Consist of: 1. Vancomycin. 2. Lipitor. 3. Zestril. 4. Trazodone. 5. Starlix. 6. Dakin's. 7. Gentamicin ointment. 8. Insulin. 9. Metformin. 10. Cefepime. ALLERGIES: NO KNOWN DRUG ALLERGIES. SOCIAL HISTORY: He denies smoking. He does not drink or use any illicit drugs. REVIEW OF SYSTEMS: He denies any chest pain, shortness of breath, nausea, vomiting, diarrhea. No fe aime, no chills, no recent weight gain or weight loss. FAMILY HISTORY: Noncontributory. PHYSICAL EXAMINATION: GENERAL: He is a middle-aged gentleman. He is in no acute distress. VITAL SIGNS: He has been afebrile. His blood pressure is 174/82, heart rate 72, respiratory rate 16 , he is 97% sat on room air. NECK: 2+ carotid, radial and brachial pulses bilaterally. LUNGS: Clear. HEART: Regular rate and rhythm. ABDOMEN: Soft, nontender, nondistended. EXTREMITIES: He has 2+ femoral and popliteal pulses bilaterally. I do not feel DP or PT pulses in e ither lower extremity. He has dry gangrene of the tip of the right great toe. It is just the very d istal tip of the toe. He had arterial studies that showed monophasic tibial flow bilaterally suggest ing tibial disease. There is no stenosis noted and there is good flow down into the pop bilaterally. IMPRESSION: Dry gangrene of the right first toe in the setting of tibial disease. It is very dry cu rrently. I agree with the doctors to be dealt with it as an outpatient that can be set up with a fol lowup visit in the [facility]. I will see him along with Dr. Rothman. He will need an angiogram eventual ly, but there are no acute findings, no signs of any ischemia or any infection at present. Dictated By: CONSUELO BEACH/EVELYN Conf#: [id number] DID#: [id number] CC: CHRISTOPHE ROTHMAN MD; CONSUELO PATRICK MD; DRU BAUGH MD; CICI ARVIZU MD;*EndCC*
[2018-11-22] MEDS: HYDROCODONE/APAP (5/325) TAB PO PRN ×2 (09:29→20:14)
[2018-11-22] MEDS: VANCOMYCIN HCL 1.25 GM in SOD CHLORIDE 0.9% 250 ML IVPB SCH ×2 (09:29→22:22)
[2018-11-22 14:08] VITALS: BP 175/81; PULSE 76; RESP 16
--- NOTE | 2018-11-22 15:25 | PN ---
Date/Time of Note Date/Time of Note DATE: 11/22/18 TIME: 15:20 Assessment/Plan VTE Prophylaxis Risk score (from Ns)>0 risk: 3 SCD applied (from Ns): Yes Pharmacological prophylaxis: other Pharm contraindication: low risk/ambulating Lines/Catheters IV Catheter Type (from Nrsg): Saline Lock Assessment/Plan Assessment/Plan 1. Right great toe tip dry gangrene, MRI with possible osteomyelitis, ID for decision of antibiotics 2. Peripheral vascular disease, outpatient work up per Dr. Roland 3. DM, stable 4. HTN, increase lisinopril for better blood pressure control 5. Dyslipidemia, on lipitor Result Diagram: 11/22/1845811/22/18458 Results 24hrs Laboratory Tests Test 11/21/18 17:39 11/21/18 21:01 11/22/18 04:59 11/22/18 08:00 Bedside Glucose 121 112 148 White Blood Count 9.0 Red Blood Count 4.23 L Hemoglobin 12.5 L Hematocrit 35.9 L Mean Corpuscular 84.9 Volume Mean Corpuscular 29.6 Hemoglobin Mean Corpuscular 34.8 Hemoglobin Concent Red Cell 11.8 Distribution Width Platelet Count 167 Mean Platelet Volume 11.9 H Immature 0.200 Granulocytes % Neutrophils % 63.4 Lymphocytes % 21.9 Monocytes % 10.8 Eosinophils % 3.3 Basophils % 0.4 Nucleated Red Blood 0.0 Cells % Immature 0.020 Granulocytes # Neutrophils # 5.7 Lymphocytes # 2.0 Monocytes # 1.0 H Eosinophils # 0.3 Basophils # 0.0 Nucleated Red Blood 0.0 Cells # Sodium Level 138 Potassium Level 4.4 Chloride Level 100 Carbon Dioxide Level 26 Anion Gap 12 Blood Urea Nitrogen 18 Creatinine 0.81 Est Glomerular > 60 Filtrat Rate mL/min Glucose Level 132 # Calcium Level 8.8 Iron Level 63 Total Iron Binding 273 Capacity Percent Iron 23 Saturation Ferritin 138.0 Total Bilirubin 0.4 Direct Bilirubin 0.00 Indirect Bilirubin 0.4 Aspartate Amino 19 Transf (AST/SGOT) Alanine 19 Aminotransferase (AL T/SGPT) Alkaline Phosphatase 59 Total Protein 6.4 Albumin 3.2 L Globulin 3.20 Albumin/Globulin 1.00 Ratio Test 11/22/18 13:08 Bedside Glucose 107 Subjective 24 Hr Interval Summary Free Text/Dictation no fever or chills Exam/Review of Systems Exam Vitals Vital Signs Date Temp Pulse Resp B/P (MAP) Pulse Ox O2 O2 Flow FiO2 Time Delivery Rate 11/22/18 98.3 76 16 175/81 95 14:08 (112) 11/22/18 Room Air 02:00 Intake and Output 11/21/18 11/21/18 11/22/18 1414:59 22:59 06:59 IntakeIntake Total 1140 ml 530 ml 250 ml OutputOutput Total 450 ml 400 ml 1300 ml BalanceBalance 690 ml 130 ml -1050 ml Constitutional: alert, oriented, well developed Psych: no complaints, nl mood/affect Head: normocephalic, atraumatic Eyes: nl conjunctiva, EOMI, nl lids, PERRL ENMT: nl external ears & nose, nl lips & teeth, nl nasal mucosa & septum Neck: supple, non-tender Respiratory: clear to auscultation, normal air movement; No congested cough, No crackles/rales, No diminished breath sounds, No intercostal retraction, No labored breathing, No respirations, No tactile fremitus, No wheezing, No other Cardiovascular: regular rate and rhythm, nl pulses; No bruits, No diastolic murmur, No edema, No gallop, No irregular rhythm, No jugular venous distention (JVD), No murmurs/extra sounds, No rub, No systolic murmur, No S3, No S4, No other Gastrointestinal: soft, nl liver, spleen, non-tender Extremities: other (right great toe tip dry gangrene) 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, nl mental status, nl speech, nl strength Results Results 24hrs Laboratory Tests Test 11/21/18 17:39 11/21/18 21:01 11/22/18 04:59 11/22/18 08:00 Bedside Glucose 121 112 148 White Blood Count 9.0 Red Blood Count 4.23 L Hemoglobin 12.5 L Hematocrit 35.9 L Mean Corpuscular 84.9 Volume Mean Corpuscular 29.6 Hemoglobin Mean Corpuscular 34.8 Hemoglobin Concent Red Cell 11.8 Distribution Width Platelet Count 167 Mean Platelet Volume 11.9 H Immature 0.200 Granulocytes % Neutrophils % 63.4 Lymphocytes % 21.9 Monocytes % 10.8 Eosinophils % 3.3 Basophils % 0.4 Nucleated Red Blood 0.0 Cells % Immature 0.020 Granulocytes # Neutrophils # 5.7 Lymphocytes # 2.0 Monocytes # 1.0 H Eosinophils # 0.3 Basophils # 0.0 Nucleated Red Blood 0.0 Cells # Sodium Level 138 Potassium Level 4.4 Chloride Level 100 Carbon Dioxide Level 26 Anion Gap 12 Blood Urea Nitrogen 18 Creatinine 0.81 Est Glomerular > 60 Filtrat Rate mL/min Glucose Level 132 # Calcium Level 8.8 Iron Level 63 Total Iron Binding 273 Capacity Percent Iron 23 Saturation Ferritin 138.0 Total Bilirubin 0.4 Direct Bilirubin 0.00 Indirect Bilirubin 0.4 Aspartate Amino 19 Transf (AST/SGOT) Alanine 19 Aminotransferase (AL T/SGPT) Alkaline Phosphatase 59 Total Protein 6.4 Albumin 3.2 L Globulin 3.20 Albumin/Globulin 1.00 Ratio Test 11/22/18 13:08 Bedside Glucose 107 Medications Medication Current Medications Hydralazine HCl (Apresoline) 10 mg Q4H PRN IV sbp>160 Last administered on 11/20/18at 21:53; Admin Dose 10 MG; Start 11/20/18 at 04:00 Cefepime HCl 50 ml @ 100 mls/hr Q12 IVPB Last administered on 11/22/18at 08:04; Admin Dose 100 MLS/HR; Start 11/20/18 at 09:00 Vancomycin HCl (Vanco Iv Per Pharmacy) VANCOMYCIN PER PHARMACY PER PROTOCOL XX ; Start 11/20/18 at 04:30 IV Flush (NS 3 ml) 3 ml PER PROTOCOL IV ; Start 11/20/18 at 04:30 Ondansetron HCl (Zofran Inj) 4 mg Q6H PRN IV NAUSEA/VOMITING; Start 11/20/18 at 04:30 Acetaminophen (Tylenol Tab) 650 mg Q6H PRN PO .PAIN 1-3 OR TEMP; Start 11/20/18 at 04:30 Acetaminophen/ Hydrocodone Bitart ([place] (5/325)) 1 tab Q6H PRN PO .PAIN 4-6 Last administered on 11/22/18at 09:29; Admin Dose 1 TAB; Start 11/20/18 at 04:30 Morphine Sulfate (morphine) 2 mg Q4H PRN IV .PAIN 7-10 Last administered on 11/22/18at 10:52; Admin Dose 2 MG; Start 11/20/18 at 04:30 Diagnostic Test (Pha) (Accu-Chek) 1 ea 02 XX ; Start 11/21/18 at 02:00 Insulin Aspart (Novolog Insulin Pen) NOVOLOG *MILD* ALGORITHM WITH MEALS BEDTIME SC Last administered on 11/22/18at 08:02; Admin Dose 1 UNIT; Start 11/20/18 at 08:00 Miscellaneous Information 1 ea NOTE XX ; Start 11/20/18 at 04:30 Glucose (Glutose) 15 gm Q15M PRN PO DECREASED GLUCOSE; Start 11/20/18 at 04:30 Glucose (Glutose) 22.5 gm Q15M PRN PO DECREASED GLUCOSE; Start 11/20/18 at 04:30 Dextrose (D50w Syringe) 25 ml Q15M PRN IV DECREASED GLUCOSE; Start 11/20/18 at 04:30 Dextrose (D50w Syringe) 50 ml Q15M PRN IV DECREASED GLUCOSE; Start 11/20/18 at 04:30 Glucagon (Glucagen) 1 mg Q15M PRN IM DECREASED GLUCOSE; Start 11/20/18 at 04:30 Glucose (Glutose) 15 gm Q15M PRN BUCCAL DECREASED GLUCOSE; Start 11/20/18 at 04:30 Metformin HCl (Glucophage) 850 mg BID WITH MEALS PO Last administered on 11/22/18at 08:01; Admin Dose 850 MG; Start 11/20/18 at 11:00 Diagnostic Test (Pha) (Accu-Chek) 1 ea AC MEALS AND BEDTIME XX Last admi nistered on 11/22/18at 11:30; Admin Dose 1 EA; Start 11/20/18 at 11:30 Nateglinide (Starlix) 120 mg AC MEALS PO Last administered on 11/22/18at 13:10; Admin Dose 120 MG; Start 11/20/18 at 11:30 Sodium Hypochlorite (Dakin'S (Dilute )) 1 applic DAILY IRR Last administered on 11/22/18at 08:06; Admin Dose 1 APPLIC; Start 11/21/18 at 09:00 Gentamicin Sulfate (Gentamicin 0.1% Oint) 1 applic DAILY TOP Last administered on 11/22/18at 08:06; Admin Dose 1 APPLIC; Start 11/21/18 at 09:00 Trazodone HCl (Desyrel) 50 mg HS PRN PO INSOMNIA; Start 11/21/18 at 00:40 Lisinopril (Zestril) 10 mg DAILY PO Last administered on 11/22/18at 08:03; Admin Dose 10 MG; Start 11/21/18 at 10:00 Atorvastatin Calcium (Lipitor) 10 mg HS PO Last administered on 11/21/18at 21:06; Admin Dose 10 MG; Start 11/21/18 at 21:00 Vancomycin HCl 1.25 gm/Sodium Chloride 250 ml @ 83.333 mls/ hr Q12H IVPB Last administered on 11/22/18at 09:29; Admin Dose 83.333 MLS/HR; Start 11/21/18 at 22:00 NIMISHA ENGLE MD Nov 22, 2018 15:25
[2018-11-22] MEDS: hydrALAzine 20 MG INJ IV PRN ×2 (15:29→20:21)
--- NOTE | 2018-11-22 17:06 | CONS ---
DATE OF ADMISSION: 11/19/2018 DATE OF CONSULTATION: 11/22/2018 TYPE OF CONSULTATION: Infectious disease. REASON FOR CONSULTATION: Antibiotic management. HISTORY OF PRESENT ILLNESS: Travis Taylor is a 63-year-old male who comes in with an ingr own toenail to his big right toe and is being seen for antibiotic management. The patient is a Spani sh speaking 63-year-old male. He has a number of problems including probable alcohol abuse. He pres ents with right toe pain. 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 He noticed redness and swelling of his r ight big toe 3 weeks ago. He has tried [id number] creams and steroids as well as salt water ba ths without any relief. Pain is worse when walking. He was seen in the clinic and they referred him here to rule out gangrene and cellulitis of the big toe. He usually wears boots that are too small for his feet and this has exacerbated his pain. He denies any associated fever, chills, drainage, nu mbness, tingling, focal weakness. He denies any trauma to his foot. On admission, his right big toe was swollen with minimal warmth. PAST MEDICAL HISTORY: No surgical history. FAMILY HISTORY: Noncontributory. SOCIAL HISTORY: He does not smoke, drink or abuse drugs. ALLERGIES: NONE TO PENICILLIN, SULFA OR FOODS. MEDICATIONS: Per chart. REVIEW OF SYSTEMS: As per HPI. ANCILLARY LABORATORY DATA: White count was 9.4, H and H of 13.9 and 40, platelet count 191. BUN and creatinine 24/0.92 glucose was 452. HOSPITAL COURSE: The patient was seen by Dr. Monsivais on 11/20/2018 for right subcutaneous ulceration with gangrene. The patient has peripheral neuropathy, was started on vancomycin and cefepime. Dr. Monsivais noted that he has right foot subcutaneous ulceration, diabetes, peripheral neuropathy. Eva nue empiric antibiotics. If no radiographic evidence of osteomyelitis, no surgery is planned. [facility] recommendations regarding wound healing, potential vascular studies given decreased pulses, he wou ld benefit from a vascular consultation. The patient was seen by Dr. Garcia, who felt he had dry gang kevin of the right 1st toe in the setting of tibial disease. It is very dry currently. He can be dillon lt with it as an outpatient and follow up in the [facility]. He will need an angiogram eventually. MRI was done. Subcutaneous edema in the 1st digit, 1st digit skin irregularity, reactive marrow jim a, faint intermediate T1 signal of the distal phalanx, some of which is exaggerated by motion. Early osteomyelitis cannot be completely excluded. No overt marrow replacement. Diffuse subcutaneous kurtis ma in the visualized intrinsic musculature of the forefoot. He has monophasic waveforms in bilateral posterior tibial and dorsalis pedis arteries suggesting inflow disease into the bilateral lower legs . If further characterization of the arterial vasculature is needed, CT angiogram is recommended. T he patient is currently on vancomycin still and cefepime. PHYSICAL EXAMINATION: GENERAL: He is a well-developed, well-nourished male who is awake, responsive, in no acute distress. VITAL SIGNS: Stable. He is afebrile. SKIN: Without generalized rash. HEENT: Within normal limits. NECK: Supple. LYMPH NODES: None palpable. LUNGS: Clear to P and A. HEART: Without murmur or gallop. ABDOMEN: Soft, nontender. EXTREMITIES: Without cyanosis or clubbing. NEUROLOGIC: He has gangrene in distal tip of the right great toe which is dry. RECTAL AND GENITAL: Deferred. NEUROLOGICAL: The patient with diabetic neuropathy. IMPRESSION AND PLAN: Despite the possibility of osteomyelitis, the patient appears to have dry gangr nate of the toe and I would probably treat him as an outpatient. I am not sure that he needs any anti biotics. If anything, we will give him some oral Bactrim-DS b.i.d., but I do not think that the toe is salvageable. I will dictate my findings to the hospitalist, Dr. Monsivais and Dr. Garcia. Dictated By: FRANTZ MCKEON MD, JD/NTS Conf#: [id number] DID#: [id number] CC: CICI ARVIZU MD; JAY JAY MONSIVAIS DPM;*EndCC*
[2018-11-22] MEDS: ONDANSETRON 4 MG INJ IV PRN (18:48)
[2018-11-22 20:07] VITALS: BP 166/76; PULSE 85; RESP 17
[2018-11-22] MEDS: ATORVASTATIN 10 MG TAB PO SCH (20:14)
[2018-11-22 21:41] VITALS: BP 153/72; PULSE 91; RESP 17
[2018-11-23 01:37] VITALS: BP 132/59; PULSE 77; RESP 16
[2018-11-23] MEDS: ACCU-CHEK XX SCH ×5 (02:00→21:42)
[2018-11-23 07:38] VITALS: BP 127/60; PULSE 80; RESP 16
[2018-11-23] MEDS: INSULIN ASPART [NOVOLOG] 3 ML PEN SC SCH ×4 (08:14→20:26)
[2018-11-23] MEDS: CEFEPIME 1GM/50 ML (PMX) 50 ML IVPB SCH ×2 (08:17→20:31)
[2018-11-23] MEDS: metFORMIN 850 MG TAB PO SCH ×2 (08:17→18:19)
[2018-11-23] MEDS: ENOXAPARIN 40 MG/0.4 ML SYG SC SCH (08:17)
[2018-11-23] MEDS: NATEGLINIDE 120 MG TAB PO SCH ×3 (08:18→18:18)
[2018-11-23] MEDS: LISINOPRIL 20 MG TAB PO SCH (08:19)
[2018-11-23] MEDS: GENTAMICIN 0.1% 15 GM OINT TOP SCH (08:20)
[2018-11-23] MEDS: SODIUM HYPOCHLORITE (1/40) 1 APPLIC BTL IRR SCH (08:21)
[2018-11-23] MEDS: VANCOMYCIN HCL 1.25 GM in SOD CHLORIDE 0.9% 250 ML IVPB SCH (10:55)
[2018-11-23] MEDS ORDERED: SULF1TAB31 PO (12:59)
[2018-11-23] MEDS ORDERED: LISI-471 PO (12:59)
[2018-11-23] MEDS ORDERED: ATOR10TA65 PO (12:59)
[2018-11-23] MEDS ORDERED: METF-480 PO (12:59)
[2018-11-23] MEDS ORDERED: NATE120T PO (12:59)
--- NOTE | 2018-11-23 13:08 | DS ---
Date/Time of Note Date/Time of Note DATE: 11/23/18 TIME: 13:01 Discharge Summary Admission/Discharge Info Admit Date/Time Nov 19, 2018 at 23:36 Discharge Date/Time Discharge Diagnosis 1. Right great toe tip dry gangrene, stable, follow up with Dr. Alonzo 2. Peripheral vascular disease, outpatient work up with Dr. Roland 3. DM, follow up with PCP to adjust treatment 4. HTN, controlled 5. Dyslipidemia, on lipitor Patient Condition: Stable Hospital Course Patient is a male with no sniffing past medical history secondary to having no insurance not seeing doctors in many years who presents to [facility] after being sent by his clinic. Patient was urged to go to the clinic by his sister after he was suffering from an toe issue on his right great toe. Patient states that it began with redness and swelling to his right big toe approximately 3 weeks ago and he tried [id number] creams and steroids and it did not help. 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 Patient currently denies any abdominal pain chest pain shortness of breath headache nausea, vomiting leg pain except for pain in the great toe. For right great toe dry gangrene, MRI with possible osteomyelitis but clinically more a ischemic dry gangrene. ID Dr. Barnard recommends no antibiotics or just bactrim. Patient will follow up with heavy machinery operator Dr. Alonzo. Patient has peripheral vascular disease on arterial US that Dr. Roland recommends outpatient follow up and work up. Patient is put on treatment for DM, hypertension and dyslipidemia that he will follow up with PCP for treatment adjustment. Home Meds Active Scripts Sulfamethoxazole/Trimethoprim* (Bactrim Ds* Tablet) 1 Each Tablet, 1 TAB PO BID for 7 Days, TAB Prov:NIMISHA ENGLE MD 11/23/18 Nateglinide* (Nateglinide*) 120 Mg Tablet, 120 MG PO AC MEALS for 30 Days, TAB Prov:NIMISHA ENGLE MD 11/23/18 Metformin* (Glucophage*) 850 Mg Tablet, 850 MG PO BID WITH MEALS for 30 Days, TAB Prov:NIMISHA ENGLE MD 11/23/18 Lisinopril* (Lisinopril*) 20 Mg Tablet, 40 MG PO DAILY for 30 Days, TAB Prov:NIMISHA ENGLE MD 11/23/18 Atorvastatin (Atorvastatin) 10 Mg Tablet, 10 MG PO HS for 30 Days, TAB Prov:NIMISHA ENGLE MD 11/23/18 Follow-up Plan PCP in one week Dr. Roland in one week Dr. Alonzo in one week Primary Care Provider Doctor Group Emergency Pending Labs Laboratory Tests Test 11/22/18 13:08 11/22/18 17:34 11/22/18 20:14 11/23/18 08:06 Bedside 107 135 179 143 Glucose mg/dL (70-220) mg/dL (70-220) mg/dL (70-220) mg/dL (70-220) Test 11/23/18 12:02 Bedside 96 Glucose mg/dL (70-220) NIMISHA ENGLE MD Nov 23, 2018 13:08
[2018-11-23] MEDS ORDERED: ASPI-817 PO (13:09)
[2018-11-23] MEDS: ASPIRIN (EC) 81 MG TAB PO SCH (13:40)
[2018-11-23 13:58] VITALS: BP 113/54; PULSE 79; RESP 16
[2018-11-23] MEDS ORDERED: morphine LIQ (10 MG/5 ML) CUP PO PRN (16:30)
--- NOTE | 2018-11-23 17:34 | CONS ---
Assessment/Plan Assessment/Plan Hospital Course (Demo Recall) ID NOTE = CURRENT ABX: DAY # =>Vanco IV +Cefepime 11/22/18 0459 11/22/18 0459 24H INTERVAL SUMMARY * A/A/O - VSS, NO fevers, daughter and spouse present who assist with [place] interpretation * "Poquito dolor" = Mild pain in right foot/toe * 11/19/18 LOWER EXT DUPLEX: * 11/19/18 MRI: IMPRESSION:Multiple sequences are degraded by motion limiting evaluation. * 1. Subcutaneous edema in the first digit with distal first digit skin irregularity. 2. Reactive marrow edema/reactive osteitis of the first distal phalanx. There is faint intermediate T1 signal in the distal first phalanx, some of which is exaggerated by motion, and early osteomyelitis cannot be completely excluded. No overt marrow replacement. * 3. Diffuse subcutaneous edema and edema in the visualized intrinsic musculature of the forefoot. MICRO * 11/19/18 URINE CX: 11/19/18 URINE CX: URINE CULTURE Final PHYSICAL EXAMINATION: GENERAL: Afebrile, VSS HEENT: AT, NC, anicteric, moist oral membranes NECK: Supple, trach midline CHEST: Equal chest rise bilaterally, without dyspnea on observation HEART: Pulse RRR ABDOMEN: Soft EXTREMITIES: Warm, dry, right foot DSG C/D/I w/diabetic shoe SKIN: No rash, no diaphoresis ID ASSESSMENT 63 yo M admit with: 1. Right great toe tip dry gangrene, stable, follow up with Dr. Alonzo 2. Peripheral vascular disease, outpatient work up with Dr. Roland 3. DM, follow up with PCP to adjust treatment 4. HTN, controlled 5. Dyslipidemia, on lipitor ABX ALLERGIES: NKDA INVASIVES: PICC CURRENT ABX: DAY #=>Vanco IV +Cefepime ID RECOMMENDATIONS/PLAN: DC PLANNING: DC on hold RATIONALE: Patient has no money to purchase DC meds recommended. Furthermore, my concern is that long-term Bactrim + ACEI + Metformin + DM Kidney may be a risking combination if S. Creatinine is not checked. Dr. Morrison recommended amputation of the toe -- can the patient be considered for this procedure to be arranged either here [facility] or [facility] this week -- while his [employer]i-[employer] benefits are in process? - Will f/u tomorrow. Consultation Date/Type/Reason Admit Date/Time Nov 19, 2018 at 23:36 Initial Consult Date Date/Time of Note DATE: 11/23/18 TIME: 17:16 Exam/Review of Systems Exam Vitals Vital Signs Date Temp Pulse Resp B/P (MAP) Pulse Ox O2 O2 Flow FiO2 Time Delivery Rate 11/23/18 98.3 79 16 113/54 91 Room Air 13:58 (73) Intake and Output 11/22/18 11/22/18 11/23/18 1515:00 23:00 07:00 IntakeIntake Total 1260 ml 490 ml 486 ml OutputOutput Total 400 ml 450 ml BalanceBalance 1260 ml 90 ml 36 ml Results Result Diagram: 11/22/18 0459 11/22/18 0459 Results 24hrs Laboratory Tests Test 11/22/18 17:34 11/22/18 20:14 11/23/18 08:06 11/23/18 12:02 Bedside Glucose 135 179 143 96 Medications Medication Current Medications Hydralazine HCl (Apresoline) 10 mg Q4H PRN IV sbp>160 Last administered on 11/22/18at 20:21; Admin Dose 10 MG; Start 11/20/18 at 04:00 Cefepime HCl 50 ml @ 100 mls/hr Q12 IVPB Last administered on 11/23/18at 08:17; Admin Dose 100 MLS/HR; Start 11/20/18 at 09:00 Vancomycin HCl (Vanco Iv Per Pharmacy) VANCOMYCIN PER PHARMACY PER PROTOCOL XX ; Start 11/20/18 at 04:30 IV Flush (NS 3 ml) 3 ml PER PROTOCOL IV ; Start 11/20/18 at 04:30 Ondansetron HCl (Zofran Inj) 4 mg Q6H PRN IV NAUSEA/VOMITING Last administered on 11/22/18at 18:48; Admin Dose 4 MG; Start 11/20/18 at 04:30 Acetaminophen (Tylenol Tab) 650 mg Q6H PRN PO .PAIN 1-3 OR TEMP; Start 11/20/18 at 04:30 Acetaminophen/ Hydrocodone Bitart ([place] (5/325)) 1 tab Q6H PRN PO .PAIN 4-6 Last administered on 11/22/18at 20:14; Admin Dose 1 TAB; Start 11/20/18 at 04:30 Diagnostic Test (Pha) (Accu-Chek) 1 ea 02 XX ; Start 11/21/18 at 02:00 Insulin Aspart (Novolog Insulin Pen) NOVOLOG *MILD* ALGORITHM WITH MEALS BEDTIME SC Last administered on 11/23/18at 08:14; Admin Dose 1 UNIT; Start 11/20/18 at 08:00 Miscellaneous Information 1 ea NOTE XX ; Start 11/20/18 at 04:30 Glucose (Glutose) 15 gm Q15M PRN PO DECREASED GLUCOSE; Start 11/20/18 at 04:30 Glucose (Glutose) 22.5 gm Q15M PRN PO DECREASED GLUCOSE; Start 11/20/18 at 04:30 Dextrose (D50w Syringe) 25 ml Q15M PRN IV DECREASED GLUCOSE; Start 11/20/18 at 04:30 Dextrose (D50w Syringe) 50 ml Q15M PRN IV DECREASED GLUCOSE; Start 11/20/18 at 04:30 Glucagon (Glucagen) 1 mg Q15M PRN IM DECREASED GLUCOSE; Start 11/20/18 at 04:30 Glucose (Glutose) 15 gm Q15M PRN BUCCAL DECREASED GLUCOSE; Start 11/20/18 at 04:30 Metformin HCl (Glucophage) 850 mg BID WITH MEALS PO Last administered on 11/23/18at 08:17; Admin Dose 850 MG; Start 11/20/18 at 11:00 Diagnostic Test (Pha) (Accu-Chek) 1 ea AC MEALS AND BEDTIME XX Last administered on 11/23/18at 12:03; Admin Dose 1 EA; Start 11/20/18 at 11:30 Nateglinide (Starlix) 120 mg AC MEALS PO Last administered on 11/23/18at 12:03; Admin Dose 120 MG; Start 11/20/18 at 11:30 Sodium Hypochlorite (Dakin'S (Dilute )) 1 applic DAILY IRR Last administe red on 11/23/18at 08:21; Admin Dose 1 APPLIC; Start 11/21/18 at 09:00 Gentamicin Sulfate (Gentamicin 0.1% Oint) 1 applic DAILY TOP Last administered on 11/23/18at 08:20; Admin Dose 1 APPLIC; Start 11/21/18 at 09:00 Trazodone HCl (Desyrel) 50 mg HS PRN PO INSOMNIA; Start 11/21/18 at 00:40 Atorvastatin Calcium (Lipitor) 10 mg HS PO Last administered on 11/22/18at 20:14; Admin Dose 10 MG; Start 11/21/18 at 21:00 Vancomycin HCl 1.25 gm/Sodium Chloride 250 ml @ 83.333 mls/ hr Q12H IVPB Last administered on 11/23/18at 10:55; Admin Dose 83.333 MLS/HR; Start 11/21/18 at 22:00 Lisinopril (Zestril) 40 mg DAILY PO Last administered on 11/23/18at 08:19; Admin Dose 40 MG; Start 11/23/18 at 09:00 Enoxaparin Sodium (Lovenox) 40 mg DAILY SC Last administered on 11/23/18at 08:17; Admin Dose 40 MG; Start 11/23/18 at 09:00 Miscellaneous Information (*Rx Drug Level Order Reminder*) VANCOMYCIN TROUGH AT 2100 ONCE ONCE XX ; Start 11/23/18 at 21:00; Stop 11/23/18 at 21:01 Aspirin (Halfprin) 81 mg DAILY PO Last administered on 11/23/18at 13:40; Admin Dose 81 MG; Start 11/23/18 at 13:30 Morphine Sulfate (morphine) 6 mg Q4H PRN PO SEVERE PAIN LEVEL 7-10; Start 11/23/18 at 16:30 SAY HEATH NP Nov 23, 2018 17:26
--- NOTE | 2018-11-23 19:18 | PN ---
DATE: 11/23/2018 SUBJECTIVE: The patient is being followed for right hallux gangrene. The patient had imaging studie s as well as arterial noninvasives which revealed monophasic waveforms suggesting inflow disease and MRI with subcutaneous edema with reactive marrow edema, reactive osteitis of the 1st distal phalanx, right foot, no palpable pedal pulses, dry gangrene of the distal tip of the hallux. No cellulitis, n o lymphangitis. Blood cultures show no growth. LABORATORIES: WBC 9, hemoglobin 12.5, hematocrit 35.9, platelets 167. Sed rate is 50. ASSESSMENT: 1. Gangrene, right distal hallux, dry. 2. Peripheral vascular disease. 3. 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 PLAN: I reviewed imaging studies. We can perform partial hallux amputation. I recommend optimizing from a vascular standpoint. Continue current topical recommendations. Dictated By: JAY JAY HERNÁNDEZ/EVELYN Conf#: [id number] DID#: [id number] CC: CICI ARVIZU MD;*EndCC*
[2018-11-23] MEDS: ATORVASTATIN 10 MG TAB PO SCH (20:25)
[2018-11-23] MEDS: ACETAMINOPHEN 325 MG TAB PO PRN (20:25)
[2018-11-23 20:27] VITALS: BP 131/60; PULSE 89; RESP 18
[2018-11-23] MEDS: VANCOMYCIN 1 GM 250 ML IVPB SCH (22:52)
[2018-11-24 01:44] VITALS: BP 125/59; PULSE 77; RESP 18
[2018-11-24] MEDS: ACCU-CHEK XX SCH ×5 (01:48→20:57)
[2018-11-24 07:38] VITALS: BP 123/62; PULSE 74; RESP 18
[2018-11-24] MEDS: INSULIN ASPART [NOVOLOG] 3 ML PEN SC SCH ×4 (08:00→20:56)
[2018-11-24] MEDS: CEFEPIME 1GM/50 ML (PMX) 50 ML IVPB SCH (08:30)
[2018-11-24] MEDS: NATEGLINIDE 120 MG TAB PO SCH ×3 (08:31→17:53)
[2018-11-24] MEDS: LISINOPRIL 20 MG TAB PO SCH (08:32)
[2018-11-24] MEDS: GENTAMICIN 0.1% 15 GM OINT TOP SCH (08:32)
[2018-11-24] MEDS: ASPIRIN (EC) 81 MG TAB PO SCH (08:32)
[2018-11-24] MEDS: ENOXAPARIN 40 MG/0.4 ML SYG SC SCH (08:33)
[2018-11-24] MEDS: SODIUM HYPOCHLORITE (1/40) 1 APPLIC BTL IRR SCH (08:33)
[2018-11-24] MEDS: metFORMIN 850 MG TAB PO SCH ×2 (08:40→17:54)
[2018-11-24] MEDS: VANCOMYCIN 1 GM 250 ML IVPB SCH (11:45)
--- NOTE | 2018-11-24 13:05 | CONS ---
Assessment/Plan Assessment/Plan Hospital Course (Demo Recall) ID NOTE = CURRENT ABX: DAY # =>Vanco IV +Cefepime 11/22/18 0459 11/24/18 0513 24H INTERVAL SUMMARY * Complains of Nausea w/emesis -- worse with IV ABX administration -- "Poquito dolor" = Mild pain in right foot/toe * A/A/O - VSS, NO fevers * Plan was to DC yesterday w/multiple Rx for OP pharmacy filling; however the family has limited disposable [place] -- cannot afford meds * 11/19/18 LOWER EXT DUPLEX: * 11/19/18 MRI: IMPRESSION:Multiple sequences are degraded by motion limiting evaluation. * 1. Subcutaneous edema in the first digit with distal first digit skin irregularity. 2. Reactive marrow edema/reactive osteitis of the first distal phalanx. There is faint intermediate T1 signal in the distal first phalanx, some of which is exaggerated by motion, and early osteomyelitis cannot be completely excluded. No overt marrow replacement. * 3. Diffuse subcutaneous edema and edema in the visualized intrinsic musculature of the forefoot. MICRO * 11/19/18 URINE CX: 11/19/18 URINE CX: URINE CULTURE Final PHYSICAL EXAMINATION: GENERAL: Afebrile, VSS HEENT: AT, NC, anicteric, moist oral membranes NECK: Supple, trach midline CHEST: Equal chest rise bilaterally, without dyspnea on observation HEART: Pulse RRR ABDOMEN: Soft EXTREMITIES: Warm, dry, right foot DSG C/D/I w/diabetic shoe SKIN: No rash, no diaphoresis ID ASSESSMENT 63 yo M admit with: 1. Right great toe tip dry gangrene, stable, follow up with Dr. Alonzo 2. Peripheral vascular disease, outpatient work up with Dr. Roland 3. DM, follow up with PCP to adjust treatment 4. HTN, controlled 5. Dyslipidemia, on lipitor ABX ALLERGIES: NKDA INVASIVES: PICC CURRENT ABX: DAY #=>Vanco IV +Cefepime ID RECOMMENDATIONS/PLAN: DC PLANNING: DC on hold * RATIONALE: Patient has no money to purchase DC meds recommended. Furthermore, my concern is that long-term Bactrim + ACEI + Metformin + age >65 + DM Kidney may be a risking combination if S. Creatinine is not checked. * I discussed the risk vs benefit of continuing IV ABX vs sending patient home on PO ABX with both Dr. Morrison and Dr. Hdez -- the three of us agreed that due to no evidence of sepsis with DRY GANGRENE of the toe, ABX are not necessary. * -It may be in his best interest to amputate the toe - however he would need re-vascularization of the lower extremity prior to this; in addition the dry gangrene toe may just shrivel up and fall off on its own. * Due to risks of sending this patient out on new medications and BACTRIM vs alternative ABX which likely will not benefit the patient - the decision was made to DC all antibiotics. 2. He c/o nausea/emesis -- Will Rx Mylanta == he has Zofran PRN on order 3. Checking CBC, renal labs, ESR, CRP Consultation Date/Type/Reason Admit Date/Time Nov 19, 2018 at 23:36 Initial Consult Date Date/Time of Note DATE: 11/24/18 TIME: 12:55 Exam/Review of Systems Exam Vitals Vital Signs Date Temp Pulse Resp B/P (MAP) Pulse Ox O2 O2 Flow FiO2 Time Delivery Rate 11/24/18 98.8 74 18 123/62 97 Room Air 07:38 (82) Intake and Output 11/23/18 11/23/18 11/24/18 1515:00 23:00 07:00 IntakeIntake Total 150 ml 1885 ml 250 ml BalanceBalance 150 ml 1885 ml 250 ml Results Result Diagram: 11/22/18 0459 11/24/18 0513 Results 24hrs Laboratory Tests Test 11/23/18 18:14 11/23/18 20:24 11/23/18 21:12 11/24/18 05:13 Bedside Glucose 109 134 Vancomycin Level 20.1 H Trough Blood Urea Nitrogen 32 H Creatinine 1.09 Test 11/24/18 08:23 11/24/18 11:48 Bedside Glucose 100 105 Medications Medication Current Medications Hydralazine HCl (Apresoline) 10 mg Q4H PRN IV sbp>160 Last administered on 11/22/18at 20:21; Admin Dose 10 MG; Start 11/20/18 at 04:00 Cefepime HCl 50 ml @ 100 mls/hr Q12 IVPB Last administered on 11/24/18at 08:30; Admin Dose 100 MLS/HR; Start 11/20/18 at 09:00 Vancomycin HCl (Vanco Iv Per Pharmacy) VANCOMYCIN PER PHARMACY PER PROTOCOL XX ; Start 11/20/18 at 04:30 IV Flush (NS 3 ml) 3 ml PER PROTOCOL IV ; Start 11/20/18 at 04:30 Ondansetron HCl (Zofran Inj) 4 mg Q6H PRN IV NAUSEA/VOMITING Last administered on 11/22/18at 18:48; Admin Dose 4 MG; Start 11/20/18 at 04:30 Acetaminophen (Tylenol Tab) 650 mg Q6H PRN PO .PAIN 1-3 OR TEMP Last administered on 11/23/18at 20:25; Admin Dose 650 MG; Start 11/20/18 at 04:30 Acetaminophen/ Hydrocodone Bitart ([place] (5/325)) 1 tab Q6H PRN PO .PAIN 4-6 Last administered on 11/22/18at 20:14; Admin Dose 1 TAB; Start 11/20/18 at 04:30 Diagnostic Test (Pha) (Accu-Chek) 1 ea 02 XX ; Start 11/21/18 at 02:00 Insulin Aspart (Novolog Insulin Pen) NOVOLOG *MILD* ALGORITHM WITH MEALS BEDTIME SC Last administered on 11/23/18at 08:14; Admin Dose 1 UNIT; Start 11/20 at 08:00 Miscellaneous Information 1 ea NOTE XX ; Start 11/20/18 at 04:30 Glucose (Glutose) 15 gm Q15M PRN PO DECREASED GLUCOSE; Start 11/20/18 at 04:30 Glucose (Glutose) 22.5 gm Q15M PRN PO DECREASED GLUCOSE; Start 11/20/18 at 04:30 Dextrose (D50w Syringe) 25 ml Q15M PRN IV DECREASED GLUCOSE; Start 11/20/18 at 04:30 Dextrose (D50w Syringe) 50 ml Q15M PRN IV DECREASED GLUCOSE; Start 11/20/18 at 04:30 Glucagon (Glucagen) 1 mg Q15M PRN IM DECREASED GLUCOSE; Start 11/20/18 at 04:30 Glucose (Glutose) 15 gm Q15M PRN BUCCAL DECREASED GLUCOSE; Start 11/20/18 at 04:30 Metformin HCl (Glucophage) 850 mg BID WITH MEALS PO Last administered on 2/20/19at 08:40; Admin Dose 850 MG; Start 11/20/18 at 11:00 Diagnostic Test (Pha) (Accu-Chek) 1 ea AC MEALS AND BEDTIME XX Last administered on 11/24/18 11:46; Admin Dose 1 EA; Start 11/20/18 at 11:30 Nateglinide (Starlix) 120 mg AC MEALS PO Last administered on 11/24/18 11:45; Admin Dose 120 MG; Start 11/20/18 at 11:30 Sodium Hypochlorite (Dakin'S (Dilute )) 1 applic DAILY IRR Last administered on 11/24/18 08:33; Admin Dose 1 APPLIC; Start 11/21/18 at 09:00 Gentamicin Sulfate (Gentamicin 0.1% Oint) 1 applic DAILY TOP Last administered on 11/24/18 08:32; Admin Dose 1 APPLIC; Start 11/21/18 at 09:00 Trazodone HCl (Desyrel) 50 mg HS PRN PO INSOMNIA; Start 11/21/18 at 00:40 Atorvastatin Calcium (Lipitor) 10 mg HS PO Last administered on 11/23/18 20:25; Admin Dose 10 MG; Start 11/21/18 at 21:00 Lisinopril (Zestril) 40 mg DAILY PO Last administered on 11/24/18 08:32; Admin Dose 40 MG; Start 11/23/18 at 09:00 Enoxaparin Sodium (Lovenox) 40 mg DAILY SC Last administered on 11/24/18 08:33; Admin Dose 40 MG; Start 11/23/18 at 09:00 Aspirin (Halfprin) 81 mg DAILY PO Last administered on 11/24/18 08:32; Admin Dose 81 MG; Start 11/23/18 at 13:30 Morphine Sulfate (morphine) 6 mg Q4H PRN PO SEVERE PAIN LEVEL 7-10; Start 11/23/18 at 16:30 Vancomycin HCl 250 ml @ 125 mls/hr Q12H IVPB Last administered on 11/24/18 11 :45; Admin Dose 125 MLS/HR; Start 11/23/18 at 23:00 SAY HEATH NP Nov 24, 2018 13:05
[2018-11-24 13:19] VITALS: BP 155/74; PULSE 76; RESP 18
[2018-11-24] MEDS: ONDANSETRON 4 MG INJ IV PRN (13:24)
[2018-11-24] MEDS ORDERED: AL HYDROX/MG HYDROX/SIMETH 30 ML CUP PO PRN (13:30)
--- NOTE | 2018-11-24 16:24 | PN ---
Date/Time of Note Date/Time of Note DATE: 11/24/18 TIME: 16:21 Assessment/Plan VTE Prophylaxis Risk score (from Nsg)>0 risk: 2 SCD applied (from Nsg): Yes Pharmacological prophylaxis: LMWH Lines/Catheters IV Catheter Type (from Nrsg): Peripheral IV Assessment/Plan Hospital Course Patient is a male with no sniffing past medical history secondary to having no insurance not seeing doctors in many years who presents to [facility] after being sent by his clinic. Patient was urged to go to the clinic by his sister after he was suffering from an toe issue on his right great toe. Patient states that it began with redness and swelling to his right big toe approximately 3 weeks ago and he tried [id number] creams and steroids and it did not help. 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 Patient currently denies any abdominal pain chest pain shortness of breath headache nausea, vomiting leg pain except for pain in the great toe. For right great toe dry gangrene, MRI with possible osteomyelitis but clinically more a ischemic dry gangrene. ID Dr. Barnard recommends no antibiotics or just bactrim. Patient will follow up with falsework builder Dr. Alonzo. Patient has peripheral vascular disease on arterial US that Dr. Roland recommends outpatient follow up and work up. Patient is put on treatment for DM, hypertension and dyslipidemia that he will follow up with PCP for treatment adjustment. Assessment/Plan 1. Right great toe tip dry gangrene, Dr. Alonzo's note reviewed, case discussed with ID 2. Peripheral vascular disease, follow up with Dr. Roland 3. DM, stable 4. HTN, controlled 5. Dyslipidemia, on lipitor 6. DVT prophylaxis: lovenox 7. customer pricing manager for D/C planning Result Diagram: 11/24/18 1345 11/24/18 1345 Results 24hrs Laboratory Tests Test 11/23/18 18:14 11/23/18 20:24 11/23/18 21:12 11/24/18 05:13 Bedside Glucose 109 134 Vancomycin Level 20.1 H Trough Blood Urea Nitrogen 32 H Creatinine 1.09 Test 11/24/18 08:23 11/24/18 11:48 11/24/18 13:45 Bedside Glucose 100 105 White Blood Count 9.0 Red Blood Count 4.54 L Hemoglobin 13.1 L Hematocrit 37.9 L Mean Corpuscular 83.5 Volume Mean Corpuscular 28.9 L Hemoglobin Mean Corpuscular 34.6 Hemoglobin Concent Red Cell 11.7 Distribution Width Platelet Count 215 # Mean Platelet Volume 11.4 H Immature 0.300 Granulocytes % Neutrophils % 72.8 Lymphocytes % 15.4 Monocytes % 9.5 Eosinophils % 1.4 Basophils % 0.6 Nucleated Red Blood 0.0 Cells % Immature 0.030 Granulocytes # Neutrophils # 6.6 Lymphocytes # 1.4 Monocytes # 0.9 Eosinophils # 0.1 Basophils # 0.1 Nucleated Red Blood 0.0 Cells # Erythrocyte 60 H Sedimentation Rate Sodium Level 138 Potassium Level 4.0 Chloride Level 102 Carbon Dioxide Level 29 Anion Gap 7 Blood Urea Nitrogen 31 H Creatinine 0.98 Glucose Level 83 Calcium Level 9.2 Phosphorus Level 3.9 C-Reactive Protein 4.5 H Albumin 3.5 Subjective 24 Hr Interval Summary Free Text/Dictation no fever or chills Exam/Review of Systems Exam Vitals Vital Signs Date Temp Pulse Resp B/P (MAP) Pulse Ox O2 O2 Flow FiO2 Time Delivery Rate 11/24/18 98.7 76 18 155/74 93 Room Air 13:19 (101) Intake and Output 11/23/18 11/23/18 11/24/18 1515:00 23:00 07:00 IntakeIntake Total 150 ml 1885 ml 250 ml BalanceBalance 150 ml 1885 ml 250 ml Constitutional: alert, oriented, well developed Psych: no complaints, nl mood/affect Head: normocephalic, atraumatic Eyes: nl conjunctiva, EOMI, nl lids ENMT: nl external ears & nose, nl lips & teeth, nl nasal mucosa & septum Neck: supple, non-tender Respiratory: clear to auscultation, normal air movement; No congested cough, No crackles/rales, No diminished breath sounds, No intercostal retraction, No labored breathing, No respirations, No tactile fremitus, No wheezing, No other Cardiovascular: regular rate and rhythm, nl pulses; No bruits, No diastolic murmur, No edema, No gallop, No irregular rhythm, No jugular venous distention (JVD), No murmurs/extra sounds, No rub, No systolic murmur, No S3, No S4, No other Gastrointestinal: soft, nl liver, spleen, non-tender Neurological: ENTRY LEVEL MANAGER II-XII intact, nl mental status, nl speech, nl strength Results Results 24hrs Laboratory Tests Test 11/23/18 18:14 11/23/18 20:24 11/23/18 21:12 11/24/18 05:13 Bedside Glucose 109 134 Vancomycin Level 20.1 H Trough Blood Urea Nitrogen 32 H Creatinine 1.09 Test 11/24/18 08:23 11/24/18 11:48 11/24/18 13:45 Bedside Glucose 100 105 White Blood Count 9.0 Red Blood Count 4.54 L Hemoglobin 13.1 L Hematocrit 37.9 L Mean Corpuscular 83.5 Volume Mean Corpuscular 28.9 L Hemoglobin Mean Corpuscular 34.6 Hemoglobin Concent Red Cell 11.7 Distribution Width Platelet Count 215 # Mean Platelet Volume 11.4 H Immature 0.300 Granulocytes % Neutrophils % 72.8 Lymphocytes % 15.4 Monocytes % 9.5 Eosinophils % 1.4 Basophils % 0.6 Nucleated Red Blood 0.0 Cells % Immature 0.030 Granulocytes # Neutrophils # 6.6 Lymphocytes # 1.4 Monocytes # 0.9 Eosinophils # 0.1 Basophils # 0.1 Nucleated Red Blood 0.0 Cells # Erythrocyte 60 H Sedimentation Rate Sodium Level 138 Potassium Level 4.0 Chloride Level 102 Carbon Dioxide Level 29 Anion Gap 7 Blood Urea Nitrogen 31 H Creatinine 0.98 Glucose Level 83 Calcium Level 9.2 Phosphorus Level 3.9 C-Reactive Protein 4.5 H Albumin 3.5 Medications Medication Current Medications Hydralazine HCl (Apresoline) 10 mg Q4H PRN IV sbp>160 Last administered on 11/22/18at 20:21; Admin Dose 10 MG; Start 11/20/18 at 04:00 IV Flush (NS 3 ml) 3 ml PER PROTOCOL IV ; Start 11/20/18 at 04:30 Ondansetron HCl (Zofran Inj) 4 mg Q6H PRN IV NAUSEA/VOMITING Last administered on 11/24/18at 13:24; Admin Dose 4 MG; Start 11/20/18 at 04:30 Acetaminophen (Tylenol Tab) 650 mg Q6H PRN PO .PAIN 1-3 OR TEMP Last administered on 11/23/18at 20:25; Admin Dose 650 MG; Start 11/20/18 at 04:30 Acetaminophen/ Hydrocodone Bitart ([place] (5/325)) 1 tab Q6H PRN PO .PAIN 4-6 Last administered on 11/22/18at 20:14; Admin Dose 1 TAB; Start 11/20/18 at 04:30 Diagnostic Test (Pha) (Accu-Chek) 1 ea 02 XX ; Start 11/21/18 at 02:00 Insulin Aspart (Novolog Insulin Pen) NOVOLOG *MILD* ALGORITHM WITH MEALS BEDTIME SC Last administered on 11/23/18at 08:14; Admin Dose 1 UNIT; Start 11/20/18 at 08:00 Miscellaneous Information 1 ea NOTE XX ; Start 11/20/18 at 04:30 Glucose (Glutose) 15 gm Q15M PRN PO DECREASED GLUCOSE; Start 11/20/18 at 04:30 Glucose (Glutose) 22.5 gm Q15M PRN PO DECREASED GLUCOSE; Start 11/20/18 at 04:30 Dextrose (D50w Syringe) 25 ml Q15M PRN IV DECREASED GLUCOSE; Start 11/20/18 at 04:30 Dextrose (D50w Syringe) 50 ml Q15M PRN IV DECREASED GLUCOSE; Start 11/20/18 at 04:30 Glucagon (Glucagen) 1 mg Q15M PRN IM DECREASED GLUCOSE; Start 11/20/18 at 04:30 Glucose (Glutose) 15 gm Q15M PRN BUCCAL DECREASED GLUCOSE; Start 11/20/18 at 04:30 Metformin HCl (Glucophage) 850 mg BID WITH MEALS PO Last administered on 11/24/18at 08:40; Admin Dose 850 MG; Start 11/20/18 at 11:00 Diagnostic Test (Pha) (Accu-Chek) 1 ea AC MEALS AND BEDTIME XX Last administered on 11/24/18at 11:46; Admin Dose 1 EA; Start 11/20/18 at 11:30 Nateglinide (Starlix) 120 mg AC MEALS PO Last administered on 11/24/18at 11:45; Admin Dose 120 MG; Start 11/20/18 at 11:30 Sodium Hypochlorite (Dakin'S (Dilute )) 1 applic DAILY IRR Last administered on 11/24/18at 08:33; Admin Dose 1 APPLIC; Start 11/21/18 at 09:00 Gentamicin Sulfate (Gentamicin 0.1% Oint) 1 applic DAILY TOP Last administered on 11/24/18 08:32; Admin Dose 1 APPLIC; Start 11/21/18 at 09:00 Trazodone HCl (Desyrel) 50 mg HS PRN PO INSOMNIA; Start 11/21/18 at 00:40 Atorvastatin Calcium (Lipitor) 10 mg HS PO Last administered on 11/23/18at 20:25; Admin Dose 10 MG; Start 11/21/18 at 21:00 Lisinopril (Zestril) 40 mg DAILY PO Last administered on 11/24/18 08:32; Admin Dose 40 MG; Start 11/23/18 at 09:00 Enoxaparin Sodium (Lovenox) 40 mg DAILY SC Last administered on 11/24/18 08:33; Admin Dose 40 MG; Start 11/23/18 at 09:00 Aspirin (Halfprin) 81 mg DAILY PO Last administered on 11/24/18 08:32; Admin Dose 81 MG; Start 11/23/18 at 13:30 Morphine Sulfate (morphine) 6 mg Q4H PRN PO SEVERE PAIN LEVEL 7-10; Start 11/23/18 at 16:30 Al Hydrox/Mg Hydrox/Simethicone (Mag-Al Plus) 30 ml Q6H PRN PO GASTROINTESTINAL UPSET; Start 11/24/18 at 13:30 NIMISHA ENGLE MD Nov 24, 2018 16:24
[2018-11-24 20:00] VITALS: BP 145/70; PULSE 82; RESP 18
[2018-11-24] MEDS: ATORVASTATIN 10 MG TAB PO SCH (20:54)
[2018-11-24] MEDS: ACETAMINOPHEN 325 MG TAB PO PRN (22:16)
[2018-11-25 02:00] VITALS: BP 119/60; PULSE 89; RESP 18
[2018-11-25] MEDS: ACCU-CHEK XX SCH ×6 (02:00→22:12)
[2018-11-25 07:45] VITALS: BP 145/66; PULSE 64; RESP 18
[2018-11-25] MEDS: INSULIN ASPART [NOVOLOG] 3 ML PEN SC SCH ×4 (08:00→22:12)
[2018-11-25] MEDS: LISINOPRIL 20 MG TAB PO SCH (08:09)
[2018-11-25] MEDS: ASPIRIN (EC) 81 MG TAB PO SCH (08:09)
[2018-11-25] MEDS: NATEGLINIDE 120 MG TAB PO SCH ×3 (08:09→17:39)
[2018-11-25] MEDS: metFORMIN 850 MG TAB PO SCH ×2 (08:10→17:39)
[2018-11-25] MEDS: GENTAMICIN 0.1% 15 GM OINT TOP SCH (08:15)
[2018-11-25] MEDS: ENOXAPARIN 40 MG/0.4 ML SYG SC SCH (08:15)
[2018-11-25] MEDS: SODIUM HYPOCHLORITE (1/40) 1 APPLIC BTL IRR SCH (08:15)
--- NOTE | 2018-11-25 13:30 | PN ---
Date/Time of Note Date/Time of Note DATE: 11/25/18 TIME: 13:28 Assessment/Plan VTE Prophylaxis Risk score (from Nsg)>0 risk: 3 SCD applied (from Nsg): Yes Pharmacological prophylaxis: LMWH Lines/Catheters IV Catheter Type (from Nrsg): Saline Lock Assessment/Plan Hospital Course Patient is a male with no sniffing past medical history secondary to having no insurance not seeing doctors in many years who presents to [facility] after being sent by his clinic. Patient was urged to go to the clinic by his sister after he was suffering from an toe issue on his right great toe. Patient states that it began with redness and swelling to his right big toe approximately 3 weeks ago and he tried [id number] creams and steroids and it did not help. 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 Patient currently denies any abdominal pain chest pain shortness of breath headache nausea, vomiting leg pain except for pain in the great toe. For right great toe dry gangrene, MRI with possible osteomyelitis but clinically more a ischemic dry gangrene. ID Dr. Barnard recommends no antibiotics or just bactrim. Patient will follow up with home service technician Dr. Alonzo. Patient has peripheral vascular disease on arterial US that Dr. Roland recommends outpatient follow up and work up. Patient is put on treatment for DM, hypertension and dyslipidemia that he will follow up with PCP for treatment adjustment. Assessment/Plan 1. Right great toe tip dry gangrene, Dr. Alonzo's note reviewed, case discussed with ID, no antibiotics needed 2. Peripheral vascular disease, follow up with Dr. Roland 3. DM, stable 4. HTN, controlled 5. Dyslipidemia, on lipitor 6. DVT prophylaxis: lovenox 7. health promotion manager for D/C planning: need to confirm patient will get medications and proper follow ups Result Diagram: 11/24/18 1345 11/24/18 1345 Results 24hrs Laboratory Tests Test 11/24/18 13:45 11/24/18 17:55 11/24/18 20:55 11/25/18 08:06 White Blood Count 9.0 Red Blood Count 4.54 L Hemoglobin 13.1 L Hematocrit 37.9 L Mean Corpuscular 83.5 Volume Mean Corpuscular 28.9 L Hemoglobin Mean Corpuscular 34.6 Hemoglobin Concent Red Cell 11.7 Distribution Width Platelet Count 215 # Mean Platelet Volume 11.4 H Immature 0.300 Granulocytes % Neutrophils % 72.8 Lymphocytes % 15.4 Monocytes % 9.5 Eosinophils % 1.4 Basophils % 0.6 Nucleated Red Blood 0.0 Cells % Immature 0.030 Granulocytes # Neutrophils # 6.6 Lymphocytes # 1.4 Monocytes # 0.9 Eosinophils # 0.1 Basophils # 0.1 Nucleated Red Blood 0.0 Cells # Erythrocyte 60 H Sedimentation Rate Sodium Level 138 Potassium Level 4.0 Chloride Level 102 Carbon Dioxide Level 29 Anion Gap 7 Blood Urea Nitrogen 31 H Creatinine 0.98 Glucose Level 83 Calcium Level 9.2 Phosphorus Level 3.9 C-Reactive Protein 4.5 H Albumin 3.5 Bedside Glucose 81 89 117 Test 11/25/18 12:20 Bedside Glucose 112 Subjective 24 Hr Interval Summary Free Text/Dictation afebrile, no distress Exam/Review of Systems Exam Vitals Vital Signs Date Temp Pulse Resp B/P (MAP) Pulse Ox O2 O2 Flow FiO2 Time Delivery Rate 11/25/18 98.1 64 18 145/66 96 Room Air 07:45 (92) Intake and Output 11/24/18 11/24/18 11/25/18 1515:00 23:00 07:00 IntakeIntake Total 1020 ml 360 ml 120 ml OutputOutput Total 450 ml 500 ml BalanceBalance 1020 ml -90 ml -380 ml Constitutional: alert, oriented, well developed Head: normocephalic, atraumatic Eyes: nl conjunctiva, EOMI, nl lids ENMT: nl external ears & nose, nl lips & teeth, nl nasal mucosa & septum Neck: supple, non-tender Respiratory: clear to auscultation, normal air movement; No congested cough, No crackles/rales, No diminished breath sounds, No intercostal retraction, No labored breathing, No respirations, No tactile fremitus, No wheezing, No other Cardiovascular: regular rate and rhythm, nl pulses; No bruits, No diastolic murmur, No edema, No gallop, No irregular rhythm, No jugular venous distention (JVD), No murmurs/extra sounds, No rub, No systolic murmur, No S3, No S4, No other Gastrointestinal: soft, nl liver, spleen, non-tender Extremities: other (right great toe tip necrotic lesion, dry no redness or discharge) Neurological: EMBROIDERY DESIGNER II-XII intact, nl mental status, nl speech, nl strength Results Results 24hrs Laboratory Tests Test 11/24/18 13:45 11/24/18 17:55 11/24/18 20:55 11/25/18 08:06 White Blood Count 9.0 Red Blood Count 4.54 L Hemoglobin 13.1 L Hematocrit 37.9 L Mean Corpuscular 83.5 Volume Mean Corpuscular 28.9 L Hemoglobin Mean Corpuscular 34.6 Hemoglobin Concent Red Cell 11.7 Distribution Width Platelet Count 215 # Mean Platelet Volume 11.4 H Immature 0.300 Granulocytes % Neutrophils % 72.8 Lymphocytes % 15.4 Monocytes % 9.5 Eosinophils % 1.4 Basophils % 0.6 Nucleated Red Blood 0.0 Cells % Immature 0.030 Granulocytes # Neutrophils # 6.6 Lymphocytes # 1.4 Monocytes # 0.9 Eosinophils # 0.1 Basophils # 0.1 Nucleated Red Blood 0.0 Cells # Erythrocyte 60 H Sedimentation Rate Sodium Level 138 Potassium Level 4.0 Chloride Level 102 Carbon Dioxide Level 29 Anion Gap 7 Blood Urea Nitrogen 31 H Creatinine 0.98 Glucose Level 83 Calcium Level 9.2 Phosphorus Level 3.9 C-Reactive Protein 4.5 H Albumin 3.5 Bedside Glucose 81 89 117 Test 11/25/18 12:20 Bedside Glucose 112 Medications Medication Current Medications Hydralazine HCl (Apresoline) 10 mg Q4H PRN IV sbp>160 Last administered on 11/22/18at 20:21; Admin Dose 10 MG; Start 11/20/18 at 04:00 IV Flush (NS 3 ml) 3 ml PER PROTOCOL IV ; Start 11/20/18 at 04:30 Ondansetron HCl (Zofran Inj) 4 mg Q6H PRN IV NAUSEA/VOMITING Last administered on 11/24/18at 13:24; Admin Dose 4 MG; Start 11/20/18 at 04:30 Acetaminophen (Tylenol Tab) 650 mg Q6H PRN PO .PAIN 1-3 OR TEMP Last administered on 11/24/18at 22:16; Admin Dose 650 MG; Start 11/20/18 at 04:30 Acetaminophen/ Hydrocodone Bitart ([place] (5/325)) 1 tab Q6H PRN PO .PAIN 4-6 Last administered on 11/22/18at 20:14; Admin Dose 1 TAB; Start 11/20/18 at 04:30 Diagnostic Test (Pha) (Accu-Chek) 1 ea 02 XX ; Start 11/21/18 at 02:00 Insulin Aspart (Novolog Insulin Pen) NOVOLOG *MILD* ALGORITHM WITH MEALS BEDTIME SC Last administered on 11/23/18 08:14; Admin Dose 1 UNIT; Start 11/20/18 at 08:00 Miscellaneous Information 1 ea NOTE XX ; Start 11/20/18 at 04:30 Glucose (Glutose) 15 gm Q15M PRN PO DECREASED GLUCOSE; Start 11/20/18 at 04:30 Glucose (Glutose) 22.5 gm Q15M PRN PO DECREASED GLUCOSE; Start 11/20/18 at 04:30 Dextrose (D50w Syringe) 25 ml Q15M PRN IV DECREASED GLUCOSE; Start 11/20/18 at 04:30 Dextrose (D50w Syringe) 50 ml Q15M PRN IV DECREASED GLUCOSE; Start 11/20/18 at 04:30 Glucagon (Glucagen) 1 mg Q15M PRN IM DECREASED GLUCOSE; Start 11/20/18 at 04:30 Glucose (Glutose) 15 gm Q15M PRN BUCCAL DECREASED GLUCOSE; Start 11/20/18 at 04:30 Metformin HCl (Glucophage) 850 mg BID WITH MEALS PO Last administered on 11/25/18at 08:10; Admin Dose 850 MG; Start 11/20/18 at 11:00 Diagnostic Test (Pha) (Accu-Chek) 1 ea AC MEALS AND BEDTIME XX Last administered on 11/25/18at 07:00; Admin Dose 1 EA; Start 11/20/18 at 11:30 Nateglinide (Starlix) 120 mg AC MEALS PO Last administered on 11/25/18at 12:21; Admin Dose 120 MG; Start 11/20/18 at 11:30 Sodium Hypochlorite (Dakin'S (Dilute 40)) 1 applic DAILY IRR Last administered on 11/25/18at 08:15; Admin Dose 1 APPLIC; Start 11/21/18 at 09:00 Gentamicin Sulfate (Gentamicin 0.1% Oint) 1 applic DAILY TOP Last administered on 11/25/18at 08:15; Admin Dose 1 APPLIC; Start 11/21/18 at 09:00 Trazodone HCl (Desyrel) 50 mg HS PRN PO INSOMNIA; Start 11/21/18 at 00:40 Atorvastatin Calcium (Lipitor) 10 mg HS PO Last administered on 11/24/18at 20:54; Admin Dose 10 MG; Start 11/21/18 at 21:00 Lisinopril (Zestril) 40 mg DAILY PO Last administered on 11/25/18at 08:09; Admin Dose 40 MG; Start 11/23/18 at 09:00 Enoxaparin Sodium (Lovenox) 40 mg DAILY SC Last administered on 11/25/18at 08:15; Admin Dose 40 MG; Start 11/23/18 at 09:00 Aspirin (Halfprin) 81 mg DAILY PO Last administered on 11/25/18at 08:09; Admin Dose 81 MG; Start 11/23/18 at 13:30 Morphine Sulfate (morphine) 6 mg Q4H PRN PO SEVERE PAIN LEVEL 7-10; Start 11/23/18 at 16:30 Al Hydrox/Mg Hydrox/Simethicone (Mag-Al Plus) 30 ml Q6H PRN PO GASTROINTESTINAL UPSET; Start 11/24/18 at 13:30 NIMISHA ENGLE MD Nov 25, 2018 13:30
--- NOTE | 2018-11-25 14:10 | CONS ---
Assessment/Plan Assessment/Plan Hospital Course (Demo Recall) ID NOTE = CURRENT ABX: DAY # =>OFF ABX Vanco IV +Cefepime -> DC'd 11/24/18 1345 11/24/18 1345 24H INTERVAL SUMMARY * A/A/O - VSS, NO fevers - ESR 60; CRP 4. 5 * Today I pulled out [employer] TRAN[employer] and had a discussion with the patient flor rding his ABX. Explained to him that he has minimal "DRY GANGRENE" only on the tip of his left great toe. There is no cellulitis involvement of the left foot. He has no fevers/chills/leukocytosis. He does not want the toe amputated. I explained to him that Dr. Morrison & Dr. Hdez have discussed his case -- they have recommended NO INDICATION FOR EMPIRIC ABX at this time for 2 reasons includin) Patient with arterial insufficiency to the great toe -- the ABX will not be effective as due to arterial blockage, they will not reach the toe. 2) The patient needs arterial revascularization prior to ABX treatment for toe salvage. 3) The GANGRENE IS DRY -- and localized (not dangerous wet gangrene); hence ABX not necessary. 4) Antibiotics have risks including renal insufficiency, and even YANET in combination with his other meds (ACEI, Metformin) and with his diabetes. I explained the future plan is to have skilled nursing case manager/social workers assist with signing him up for Medical healthcare benefits so that he can seek outpatient treatment at the [facility] where a vascular surgeon will need to be consulted for possibility of opening up the blocked arteries in his foot that in combination with his diabetes, is the cause of the gangrene. Once the blood flow has been restored, then ABX treatment will be effective. Patient was able to expressed understanding, agreement, gratitude regarding the ABX plan. * * * 11/19/18 LOWER EXT DUPLEX: Monophasic waveforms in the bilateral posterior tibial and dorsalis pedis arteries, suggesting inflow disease into the bilate ral lower legs. If further characterization of the arterial vasculature is needed CTA is recommended. * 11/19/18 MRI: IMPRESSION:Multiple sequences are degraded by motion limiting evaluation. * 1. Subcutaneous edema in the first digit with distal first digit skin irregularity. 2. Reactive marrow edema/reactive osteitis of the first distal phalanx. There is faint intermediate T1 signal in the distal first phalanx, some of which is exaggerated by motion, and early osteomyelitis cannot be completely excluded. No overt marrow replacement. * 3. Diffuse subcutaneous edema and edema in the visualized intrinsic musculature of the forefoot. MICRO * 11/19/18 URINE CX: 11/19/18 URINE CX: URINE CULTURE Final PHYSICAL EXAMINATION: GENERAL: Afebrile, VSS HEENT: AT, NC, anicteric, moist oral membranes NECK: Supple, trach midline CHEST: Equal chest rise bilaterally, without dyspnea on observation HEART: Pulse RRR ABDOMEN: Soft EXTREMITIES: Warm, dry, right foot DSG C/D/I w/diabetic shoe SKIN: No rash, no diaphoresis ID ASSESSMENT 63 yo M admit with: 1. Right great toe tip dry gangrene, stable, follow up with Dr. Alonzo 2. Peripheral vascular disease, outpatient work up with Dr. Roland 3. DM, follow up with PCP to adjust treatment 4. HTN, controlled 5. Dyslipidemia, on lipitor ABX ALLERGIES: NKDA INVASIVES: PICC CURRENT ABX: DAY #=>OFF ABX Vanco IV +Cefepime -> dc'd 11/24/18 ID RECOMMENDATIONS/PLAN: DC BX == No indication for empiric ABX for dry gangrene of the tip of toe at this time per Dr. Morrison discussion w/Dr. Hdez input. * Today I pulled out [employer] TRAN[employer] and had a discussion with the patient regarding his ABX. Explained to him that he has minimal "DRY GANGRENE" only on the tip of his left great toe. There is no cellulitis involvement of the left foot. He has no fevers/chills/leukocytosis. He does not want the toe amputated. I explained to him that Dr. Morrison & Dr. Hdez have discussed his case -- they have recommended NO INDICATION FOR EMPIRIC ABX at this time for 2 reasons includin) Patient with arterial insufficiency to the great toe -- the ABX will not be effective as due to arterial blockage, they will not reach the toe. 2) The patient needs arterial revascularization prior to ABX treatment for toe salvage. 3) The GANGRENE IS DRY -- and localized (not dangerous wet gangrene); hence ABX not necessary. 4) Antibiotics have risks including renal insufficiency, and even YANET in combination with his other meds (ACEI, Metformin) and with his diabetes. I explained the future plan is to have skilled nursing case manager/social workers assist with signing him up for Medical healthcare benefits so that he can seek outpatient treatment at the amputation prevention center where a vascular surgeon will need to be consulted for possibility of opening up the blocked arteries in his foot that in combination with his diabetes, is the cause of the gangrene. Once the blood flow has been restored, then ABX treatment will be effective. Patient was able to expressed understanding, agreement, gratitude regarding the ABX plan. Consultation Date/Type/Reason Admit Date/Time Nov 19, 2018 at 23:36 Initial Consult Date Date/Time of Note DATE: 11/25/18 TIME: 13:59 Exam/Review of Systems Exam Vitals Vital Signs Date Temp Pulse Resp B/P (MAP) Pulse Ox O2 O2 Flow FiO2 Time Delivery Rate 11/25/18 98.1 64 18 145/66 96 Room Air 07:45 (92) Intake and Output 11/24/18 11/24/18 11/25/18 1515:00 23:00 07:00 IntakeIntake Total 1020 ml 360 ml 120 ml OutputOutput Total 450 ml 500 ml BalanceBalance 1020 ml -90 ml -380 ml Results Result Diagram: 11/24/18 1345 11/24/18 1345 Results 24hrs Laboratory Tests Test 11/24/18 17:55 11/24/18 20:55 11/25/18 08:06 11/25/18 12:20 Bedside Glucose 81 89 117 112 Medications Medication Current Medications Hydralazine HCl (Apresoline) 10 mg Q4H PRN IV sbp>160 Last administered on 11/22/18at 20:21; Admin Dose 10 MG; Start 11/20/18 at 04:00 IV Flush (NS 3 ml) 3 ml PER PROTOCOL IV ; Start 11/20/18 at 04:30 Ondansetron HCl (Zofran Inj) 4 mg Q6H PRN IV NAUSEA/VOMITING Last administered on 11/24/18at 13:24; Admin Dose 4 MG; Start 11/20/18 at 04:30 Acetaminophen (Tylenol Tab) 650 mg Q6H PRN PO .PAIN 1-3 OR TEMP Last a dministered on 11/24/18at 22:16; Admin Dose 650 MG; Start 11/20/18 at 04:30 Acetaminophen/ Hydrocodone Bitart ([place] (5/325)) 1 tab Q6H PRN PO .PAIN 4-6 Last administered on 11/22/18at 20:14; Admin Dose 1 TAB; Start 11/20/18 at 04:30 Diagnostic Test (Pha) (Accu-Chek) 1 ea 02 XX ; Start 11/21/18 at 02:00 Insulin Aspart (Novolog Insulin Pen) NOVOLOG *MILD* ALGORITHM WITH MEALS BEDTIME SC Last administered on 11/23/18 08:14; Admin Dose 1 UNIT; Start 11/20/18 at 08:00 Miscellaneous Information 1 ea NOTE XX ; Start 11/20/18 at 04:30 Glucose (Glutose) 15 gm Q15M PRN PO DECREASED GLUCOSE; Start 11/20/18 at 04:30 Glucose (Glutose) 22.5 gm Q15M PRN PO DECREASED GLUCOSE; Start 11/20/18 at 04:30 Dextrose (D50w Syringe) 25 ml Q15M PRN IV DECREASED GLUCOSE; Start 11/20/18 at 04:30 Dextrose (D50w Syringe) 50 ml Q15M PRN IV DECREASED GLUCOSE; Start 11/20/18 at 04:30 Glucagon (Glucagen) 1 mg Q15M PRN IM DECREASED GLUCOSE; Start 11/20/18 at 04:30 Glucose (Glutose) 15 gm Q15M PRN BUCCAL DECREASED GLUCOSE; Start 11/20/18 at 04:30 Metformin HCl (Glucophage) 850 mg BID WITH MEALS PO Last administered on 11/25/18at 08:10; Admin Dose 850 MG; Start 11/20/18 at 11:00 Diagnostic Test (Pha) (Accu-Chek) 1 ea AC MEALS AND BEDTIME XX Last administered on 11/25/18at 07:00; Admin Dose 1 EA; Start 11/20/18 at 11:30 Nateglinide (Starlix) 120 mg AC MEALS PO Last administered on 11/25/18at 12:21; Admin Dose 120 MG; Start 11/20/18 at 11:30 Sodium Hypochlorite (Dakin'S (Dilute )) 1 applic DAILY IRR Last administered on 11/25/18at 08:15; Admin Dose 1 APPLIC; Start 11/21/18 at 09:00 Gentamicin Sulfate (Gentamicin 0.1% Oint) 1 applic DAILY TOP Last administered on 11/25/18at 08:15; Admin Dose 1 APPLIC; Start 11/21/18 at 09:00 Trazodone HCl (Desyrel) 50 mg HS PRN PO INSOMNIA; Start 11/21/18 at 00:40 Atorvastatin Calcium (Lipitor) 10 mg HS PO Last administered on 11/24/18at 20:54; Admin Dose 10 MG; Start 11/21/18 at 21:00 Lisinopril (Zestril) 40 mg DAILY PO Last administered on 11/25/18at 08:09; Admin Dose 40 MG; Start 11/23/18 at 09:00 Enoxaparin Sodium (Lovenox) 40 mg DAILY SC Last administered on 11/25/18at 08:15; Admin Dose 40 MG; Start 11/23/18 at 09:00 Aspirin (Halfprin) 81 mg DAILY PO Last administered on 11/25/18at 08:09; Admin Dose 81 MG; Start 11/23/18 at 13:30 Morphine Sulfate (morphine) 6 mg Q4H PRN PO SEVERE PAIN LEVEL 7-10; Start 11/23/18 at 16:30 Al Hydrox/Mg Hydrox/Simethicone (Mag-Al Plus) 30 ml Q6H PRN PO GASTROINTESTINAL UPSET; Start 11/24/18 at 13:30 SAY HEATH NP Nov 25, 2018 14:10
[2018-11-25 15:34] VITALS: BP 161/75; PULSE 75; RESP 18
[2018-11-25 20:00] VITALS: BP 164/77; PULSE 75; RESP 18
[2018-11-25] MEDS: hydrALAzine 20 MG INJ IV PRN (22:08)
[2018-11-25] MEDS: ATORVASTATIN 10 MG TAB PO SCH (22:09)
[2018-11-26 02:00] VITALS: BP 134/67; PULSE 70; RESP 18
[2018-11-26] MEDS: ACCU-CHEK XX SCH ×4 (07:00→21:00)
[2018-11-26 07:59] VITALS: BP 151/71; PULSE 71; RESP 18
[2018-11-26] MEDS: INSULIN ASPART [NOVOLOG] 3 ML PEN SC SCH ×4 (08:00→21:00)
[2018-11-26] MEDS: NATEGLINIDE 120 MG TAB PO SCH ×3 (08:05→17:24)
[2018-11-26] MEDS: ASPIRIN (EC) 81 MG TAB PO SCH (08:05)
[2018-11-26] MEDS: metFORMIN 850 MG TAB PO SCH ×2 (08:05→17:24)
[2018-11-26] MEDS: LISINOPRIL 20 MG TAB PO SCH (08:06)
[2018-11-26] MEDS: ENOXAPARIN 40 MG/0.4 ML SYG SC SCH (08:07)
[2018-11-26] MEDS: GENTAMICIN 0.1% 15 GM OINT TOP SCH (08:08)
[2018-11-26] MEDS: SODIUM HYPOCHLORITE (1/40) 1 APPLIC BTL IRR SCH (08:08)
--- NOTE | 2018-11-26 11:03 | CONS ---
Assessment/Plan Assessment/Plan Hospital Course (Demo Recall) ID NOTE = CURRENT ABX: DAY # =>OFF ABX Vanco IV +Cefepime -> DC'd 24H INTERVAL SUMMARY * CLINICALLY STATUS QUO -- NO NEW ISSUES/NO EVENTS SINCE YESTERDAY == DC PLANNING IN PROCESS PENDING PADDER ASSIST W/MEDICAL * A/A/O - VSS, NO fevers - ESR 60; CRP 4. 5 * YESTERDAY I SPENT SIGNIFICANT AMOUNT OF TIME WITH THE PATIENT === TODAY HE HAS NO QUESTIONS * YESTERDAY I pulled out [employer] and had a discussion with the patient regarding his ABX. Explained to him that he has minimal "DRY GANGRENE" only on the tip of his left great toe. There is no cellulitis involvement of the left foot. He has no fevers/chills/leukocytosis. He does not want the toe amputated. I explained to him that Dr. Morrison & Dr. Hdez have discussed his case -- they have recommended NO INDICATION FOR EMPIRIC ABX at this time for 2 reasons includin) Patient with arterial insufficiency to the great toe -- the ABX will not be effective as due to arterial blockage, they will not reach the toe. 2) The patient needs arterial revascularization prior to ABX treatment for toe salvage. 3) The GANGRENE IS DRY -- and localized (not dangerous wet gangrene); hence ABX not necessary. 4) Antibiotics have risks including renal insufficiency, and even YANET in combination with his other meds (ACEI, Metformin) and with his diabetes. I explained the future plan is to have case work aide/social workers assist with signing him up for Medical healthcare benefits so that he can seek outpatient treatment at the amputation prevention center where a vascular surgeon will need to be consulted for possibility of opening up the blocked arteries in his foot that in combination with his diabetes, is the cause of the gangrene. Once the blood flow has been restored, then ABX treatment will be effective. Patient was able to expressed understanding, agreement, gratitude regarding the ABX plan. * * * 11/19/18 LOWER EXT DUPLEX: Monophasic waveforms in the bilateral posterior tibial and dorsalis pedis arteries, suggesting inflow disease into the bilateral lower legs. If further characterization of the arterial vasculature is needed CTA is recommended. * 11/19/18 MRI: IMPRESSION:Multiple sequences are degraded by motion limiting evaluation. * 1. Subcutaneous edema in the first digit with distal first digit skin irregularity. 2. Reactive marrow edema/reactive osteitis of the first distal phalanx. There is faint intermediate T1 signal in the distal first phalanx, some of which is exaggerated by motion, and early osteomyelitis cannot be completely excluded. No overt marrow replacement. * 3. Diffuse subcutaneous edema and edema in the visualized intrinsic musculature of the forefoot. MICRO * 11/19/18 URINE CX: 11/19/18 URINE CX: URINE CULTURE Final PHYSICAL EXAMINATION: GENERAL: Afebrile, VSS HEENT: AT, NC, anicteric, moist oral membranes NECK: Supple, trach midline CHEST: Equal chest rise bilaterally, without dyspnea on observation HEART: Pulse RRR ABDOMEN: Soft EXTREMITIES: Warm, dry, right foot DSG C/D/I w/diabetic shoe SKIN: No rash, no diaphoresis ID ASSESSMENT 63 yo M admit with: 1. Right great toe tip dry gangrene, stable, follow up with Dr. Alonzo 2. Peripheral vascular disease, outpatient work up with Dr. Roland 3. DM, follow up with PCP to adjust treatment 4. HTN, controlled 5. Dyslipidemia, on lipitor ABX ALLERGIES: NKDA INVASIVES: PICC CURRENT ABX: DAY #=>OFF ABX Vanco IV +Cefepime -> dc'd 11/24/18 ID RECOMMENDATIONS/PLAN: DC BX == No indication for empiric ABX for dry gangrene of the tip of toe at this time per Dr. Morrison discussion w/Dr. Hdez input. * YESTERDAY I pulled out [employer] TRAN[employer] and had a discussion with the patient regarding his ABX. Explained to him that he has minimal "DRY GANGRENE" only on the tip of his left great toe. There is no cellulitis involvement of the left foot. He has no fevers/chills/leukocytosis. He does not want the toe amputated. I explained to him that Dr. Morrison & Dr. Hdez have discussed his case -- they have recommended NO INDICATION FOR EMPIRIC ABX at this time for 2 reasons includin) Patient with arterial insufficiency to the great toe -- the ABX will not be effective as due to arterial blockage, they will not reach the toe. 2) The patient needs arterial revascularization prior to ABX treatment for toe salvage. 3) The GANGRENE IS DRY -- and localized (not dangerous wet gangrene); hence ABX not necessary. 4) Antibiotics have risks including renal insufficiency, and even YANET in combination with his other meds (ACEI, Metformin) and with his diabetes. I explained the future plan is to have case work aide/social workers assist with signing him up for Medical healthcare benefits so that he can seek outpatient treatment at the amputation prevention center where a vascular surgeon will need to be consulted for possibility of opening up the blocked arteries in his foot that in combination with his diabetes, is the cause of the gangrene. Once the blood flow has been restored, then ABX treatment will be effective. Patient was able to expressed understanding, agreement, gratitude regarding the ABX plan. * PATIENT HAS NO NEW QUESTIONS TODAY -- TELLS ME HE UNDERSTANDS ID RECOMMENDATIONS PER OUR DISCUSSION YESTERDAY. Consultation Date/Type/Reason Admit Date/Time Nov 19, 2018 at 23:36 Initial Consult Date Date/Time of Note DATE: 11/26/18 TIME: 11:00 Exam/Review of Systems Exam Vitals Vital Signs Date Temp Pulse Resp B/P (MAP) Pulse Ox O2 O2 Flow FiO2 Time Delivery Rate 11/26/18 97.8 71 18 151/71 94 07:59 (97) 11/26/18 Room Air 02:00 Intake and Output 11/25/18 11/25/18 11/26/18 1515:00 23:00 07:00 IntakeIntake Total 960 ml 360 ml OutputOutput Total 500 ml BalanceBalance 460 ml 360 ml Results Result Diagram: 11/24/18 1345 11/24/18 1345 Results 24hrs Laboratory Tests Test 11/25/18 12:20 11/25/18 17:26 11/25/18 22:11 11/26/18 08:04 Bedside Glucose 112 87 88 117 Medications Medication Current Medications Hydralazine HCl (Apresoline) 10 mg Q4H PRN IV sbp>160 Last administered on 11/06 10/23at 22:08; Admin Dose 10 MG; Start 11/20/18 at 04:00 IV Flush (NS 3 ml) 3 ml PER PROTOCOL IV ; Start 11/20/18 at 04:30 Ondansetron HCl (Zofran Inj) 4 mg Q6H PRN IV NAUSEA/VOMITING Last administered on 11/24/18 13:24; Admin Dose 4 MG; Start 11/20/18 at 04:30 Acetaminophen (Tylenol Tab) 650 mg Q6H PRN PO .PAIN 1-3 OR TEMP Last administered on 11/24/18 22:16; Admin Dose 650 MG; Start 11/20/18 at 04:30 Acetaminophen/ Hydrocodone Bitart ([place] (5/325)) 1 tab Q6H PRN PO .PAIN 4-6 Last administered on 11/22/18 20:14; Admin Dose 1 TAB; Start 11/20/18 at 04:30 Diagnostic Test (Pha) (Accu-Chek) 1 ea 02 XX ; Start 11/21/18 at 02:00 Insulin Aspart (Novolog Insulin Pen) NOVOLOG *MILD* ALGORITHM WITH MEALS BEDTIME SC Last administered on 11/23/18 08:14; Admin Dose 1 UNIT; Start 11/20/18 at 08:00 Miscellaneous Information 1 ea NOTE XX ; Start 11/20/18 at 04:30 Glucose (Glutose) 15 gm Q15M PRN PO DECREASED GLUCOSE; Start 11/20/18 at 04:30 Glucose (Glutose) 22.5 gm Q15M PRN PO DECREASED GLUCOSE; Start 11/20/18 at 04:30 Dextrose (D50w Syringe) 25 ml Q15M PRN IV DECREASED GLUCOSE; Start 11/20/18 at 04:30 Dextrose (D50w Syringe) 50 ml Q15M PRN IV DECREASED GLUCOSE; Start 11/20/18 at 04:30 Glucagon (Glucagen) 1 mg Q15M PRN IM DECREASED GLUCOSE; Start 11/20/18 at 04:30 Glucose (Glutose) 15 gm Q15M PRN BUCCAL DECREASED GLUCOSE; Start 11/20/18 at 04:30 Metformin HCl (Glucophage) 850 mg BID WITH MEALS PO Last administered on 11/26/18 08:05; Admin Dose 850 MG; Start 11/20/18 at 11:00 Diagnostic Test (Pha) (Accu-Chek) 1 ea AC MEALS AND BEDTIME XX Last administered on 11/26/18 07:00; Admin Dose 1 EA; Start 11/20/18 at 11:30 Nateglinide (Starlix) 120 mg AC MEALS PO Last administered on 11/26/18 08:05; Admin Dose 120 MG; Start 11/20/18 at 11:30 Sodium Hypochlorite (Dakin'S (Dilute )) 1 applic DAILY IRR Last administered on 11/26/18 08:08; Admin Dose 1 APPLIC; Start 11/21/18 at 09:00 Gentamicin Sulfate (Gentamicin 0.1% Oint) 1 applic DAILY TOP Last administered on 11/26/18 08:08; Admin Dose 1 APPLIC; Start 11/21/18 at 09:00 Trazodone HCl (Desyrel) 50 mg HS PRN PO INSOMNIA; Start 11/21/18 at 00:40 Atorvastatin Calcium (Lipitor) 10 mg HS PO Last administered on 11/25/18 22:09; Admin Dose 10 MG; Start 11/21/18 at 21:00 Lisinopril (Zestril) 40 mg DAILY PO Last administered on 11/26/18 08:06; Admin Dose 40 MG; Start 11/23/18 at 09:00 Enoxaparin Sodium (Lovenox) 40 mg DAILY SC Last administered on 11/26/18 08:07; Admin Dose 40 MG; Start 11/23/18 at 09:00 Aspirin (Halfprin) 81 mg DAILY PO Last administered on 11/26/18 08:05; Admin Dose 81 MG; Start 11/23/18 at 13:30 Morphine Sulfate (morphine) 6 mg Q4H PRN PO SEVERE PAIN LEVEL 7-10; Start 11/23/18 at 16:30 Al Hydrox/Mg Hydrox/Simethicone (Mag-Al Plus) 30 ml Q6H PRN PO GASTROINTESTINAL UPSET; Start 11/24/18 at 13:30 SAY HEATH NP Nov 26, 2018 11:02
[2018-11-26] MEDS: HYDROCODONE/APAP (5/325) TAB PO PRN (12:51)
[2018-11-26] MEDS: hydrALAzine 20 MG INJ IV PRN ×2 (13:48→21:45)
--- NOTE | 2018-11-26 14:45 | PN ---
Date/Time of Note Date/Time of Note DATE: 11/26/18 TIME: 14:42 Assessment/Plan VTE Prophylaxis Risk score (from Nsg)>0 risk: 3 SCD applied (from Nsg): Yes Pharmacological prophylaxis: heparin Lines/Catheters IV Catheter Type (from Nrsg): Saline Lock Assessment/Plan Hospital Course 63 yo male with DMII, PAD, HTN presenting with OM of toe OM of toe, diabetic foot ulcer: - Surgical disease. Dr Vega tells me debridement today - No abx indicated given poor flow DMII: - Basal/bolus insulin PAD: - Aspirin and statin Hypertension: - Lisinopril Discharge to self care. Awaiting podiatry management. Medically stable for outpatient care otherwise Result Diagram: 11/24/18 1345 11/24/18 1345 Results 24hrs Laboratory Tests Test 11/25/18 17:26 11/25/18 22:11 11/26/18 08:04 11/26/18 12:46 Bedside Glucose 87 88 117 102 Subjective 24 Hr Interval Summary Free Text/Dictation Patient comfortable no complaints Exam/Review of Systems Exam Vitals Vital Signs Date Temp Pulse Resp B/P (MAP) Pulse Ox O2 O2 Flow FiO2 Time Delivery Rate 11/26/18 97.8 71 18 151/71 94 07:59 (97) 11/26/18 Room Air 02:00 Intake and Output 11/25/18 11/25/18 11/26/18 1515:00 23:00 07:00 IntakeIntake Total 960 ml 360 ml OutputOutput Total 500 ml BalanceBalance 460 ml 360 ml Exam Dry gangrenous ulceration of tip of big toe Resting comfortably NAD Results Results 24hrs Laboratory Tests Test 11/25/18 17:26 11/25/18 22:11 11/26/18 08:04 11/26/18 12:46 Bedside Glucose 87 88 117 102 Medications Medication Current Medications Hydralazine HCl (Apresoline) 10 mg Q4H PRN IV sbp>160 Last administered on 11/26/18at 13:48; Admin Dose 10 MG; Start 11/20/18 at 04:00 IV Flush (NS 3 ml) 3 ml PER PROTOCOL IV ; Start 11/20/18 at 04:30 Ondansetron HCl (Zofran Inj) 4 mg Q6H PRN IV NAUSEA/VOMITING Last administered on 11/24/18 13:24; Admin Dose 4 MG; Start 11/20/18 at 04:30 Acetaminophen (Tylenol Tab) 650 mg Q6H PRN PO .PAIN 1-3 OR TEMP Last administered on 11/24/18 22:16; Admin Dose 650 MG; Start 11/20/18 at 04:30 Acetaminophen/ Hydrocodone Bitart ([place] (5/325)) 1 tab Q6H PRN PO .PAIN 4-6 Last administered on 11/26/18 12:51; Admin Dose 1 TAB; Start 11/20/18 at 04:30 Diagnostic Test (Pha) (Accu-Chek) 1 ea 02 XX ; Start 11/21/18 at 02:00 Insulin Aspart (Novolog Insulin Pen) NOVOLOG *MILD* ALGORITHM WITH MEALS BEDTIME SC Last administered on 11/23/18 08:14; Admin Dose 1 UNIT; Start 11/20/18 at 08:00 Miscellaneous Information 1 ea NOTE XX ; Start 11/20/18 at 04:30 Glucose (Glutose) 15 gm Q15M PRN PO DECREASED GLUCOSE; Start 11/20/18 at 04:30 Glucose (Glutose) 22.5 gm Q15M PRN PO DECREASED GLUCOSE; Start 11/20/18 at 04:30 Dextrose (D50w Syringe) 25 ml Q15M PRN IV DECREASED GLUCOSE; Start 11/20/18 at 04:30 Dextrose (D50w Syringe) 50 ml Q15M PRN IV DECREASED GLUCOSE; Start 11/20/18 at 04:30 Glucagon (Glucagen) 1 mg Q15M PRN IM DECREASED GLUCOSE; Start 11/20/18 at 04:30 Glucose (Glutose) 15 gm Q15M PRN BUCCAL DECREASED GLUCOSE; Start 11/20/18 at 04:30 Metformin HCl (Glucophage) 850 mg BID WITH MEALS PO Last administered on 11/26/18 08:05; Admin Dose 850 MG; Start 11/20/18 at 11:00 Diagnostic Test (Pha) (Accu-Chek) 1 ea AC MEALS AND BEDTIME XX Last administered on 11/26/18 11:30; Admin Dose 1 EA; Start 11/20/18 at 11:30 Nateglinide (Starlix) 120 mg AC MEALS PO Last administered on 11/26/18at 12:47; Admin Dose 120 MG; Start 11/20/18 at 11:30 Sodium Hypochlorite (Dakin'S (Dilute )) 1 applic DAILY IRR Last administered on 11/26/18 08:08; Admin Dose 1 APPLIC; Start 11/21/18 at 09:00 Gentamicin Sulfate (Gentamicin 0.1% Oint) 1 applic DAILY TOP Last administered on 11/26/18 08:08; Admin Dose 1 APPLIC; Start 11/21/18 at 09:00 Trazodone HCl (Desyrel) 50 mg HS PRN PO INSOMNIA; Start 11/21/18 at 00:40 Atorvastatin Calcium (Lipitor) 10 mg HS PO Last administered on 11/25/18 22:09; Admin Dose 10 MG; Start 11/21/18 at 21:00 Lisinopril (Zestril) 40 mg DAILY PO Last administered on 11/26/18 08:06; Admin Dose 40 MG; Start 11/23/18 at 09:00 Enoxaparin Sodium (Lovenox) 40 mg DAILY SC Last administered on 11/26/18 08:07; Admin Dose 40 MG; Start 11/23/18 at 09:00 Aspirin (Halfprin) 81 mg DAILY PO Last administered on 11/26/18 08:05; Admin Dose 81 MG; Start 11/23/18 at 13:30 Morphine Sulfate (morphine) 6 mg Q4H PRN PO SEVERE PAIN LEVEL 7-10; Start 11/23/18 at 16:30 Al Hydrox/Mg Hydrox/Simethicone (Mag-Al Plus) 30 ml Q6H PRN PO GASTROINTESTINAL UPSET; Start 11/24/18 at 13:30 TJ JUAREZ MD Nov 26, 2018 14:45
[2018-11-26 15:25] VITALS: BP 139/65; PULSE 82; RESP 18
--- NOTE | 2018-11-26 16:26 | PDOCDIS ---
Discharge Instructions DIAGNOSIS Discharge Diagnosis 1. Right great toe tip dry gangrene, stable, follow up with Dr. Alonzo 2. Peripheral vascular disease, outpatient work up with Dr. Roland 3. DM, follow up with PCP to adjust treatment 4. HTN, controlled 5. Dyslipidemia, on lipitor CONDITION [id number] Patient Condition: [id number] Stable HOME CARE INSTRUCTIONS: [id number] Special Diet: [id number] Carb.controlled diet FOLLOW UP/APPOINTMENTS Follow-up Plan PCP in one week Dr. Roland in one week Dr. Alonzo in one week TJ JUAREZ MD Nov 26, 2018 16:25
--- NOTE | 2018-11-26 16:29 | PN ---
Date/Time of Note Date/Time of Note DATE: 11/26/18 TIME: 16:29 Assessment/Plan VTE Prophylaxis Risk score (from Nsg)>0 risk: 3 SCD applied (from Ns): Yes Pharmacological prophylaxis: other Lines/Catheters IV Catheter Type (from Nrsg): Saline Lock Assessment/Plan Assessment/Plan 1. Right foot cutaneous ulceration with gangrene. Differential diagnosis osteomyelitis, distal phalanx. 2. Diabetes type 2 with peripheral neuropathy. 3. Peripheral arterial disease. Plan: Patient was consented for bedside excisional debridement of right hallux gangrene site of skin/subQ/fascia using a pickup/scissor. Less than 10cm2 of area was debrided. Necrotic and scant purulence was removed from the wound site. Copious dakins irrigation and gentamicin ointment applied. Purulence and necrotic tissue was removed. Wound cultures were obtained. Recommend daily dressing changes. Patient is planned for angiogram on thursday. Patient will need health insurance to follow up in outpatient clinic. [facility] clinic is an alternate option. Result Diagram: 11/24/18 1345 11/24/18 1345 Results 24hrs Laboratory Tests Test 11/25/18 17:26 11/25/18 22:11 11/26/18 08:04 11/26/18 12:46 Bedside Glucose 87 88 117 102 Subjective 24 Hr Interval Summary Free Text/Dictation No acute events overnight. Exam/Review of Systems Exam Vitals Vital Signs Date Temp Pulse Resp B/P (MAP) Pulse Ox O2 O2 Flow FiO2 Time Delivery Rate 11/26/18 97.5 82 18 139/65 95 15:25 (89) 11/26/18 Room Air 02:00 Intake and Output 11/25/18 11/25/18 11/26/18 1515:00 23:00 07:00 IntakeIntake Total 960 ml 360 ml OutputOutput Total 500 ml BalanceBalance 460 ml 360 ml Exam nonpalpable PT, DP or popliteal pulse. The DP artery on the right foot is palpable and heavily calcified. There is a cutaneous gangrene of the right hallux distal aspect measuring approximately 2 x 1 cm depth that is undetermined, but well adhered. There was scant purulence appreciated to the lateral aspect of the gangrene site. There is pain with palpation. No instability of the hallux at the IPJ or MPJ Non invasive arterial studies: IMPRESSION: Monophasic waveforms in the bilateral posterior tibial and dorsalis pedis arteries, suggesting inflow disease into the bilateral lower legs. If further characterization of the arterial vasculature is needed CTA is recomme nded. Results Results 24hrs Laboratory Tests Test 11/25/18 17:26 11/25/18 22:11 11/26/18 08:04 11/26/18 12:46 Bedside Glucose 87 88 117 102 Medications Medication Current Medications Hydralazine HCl (Apresoline) 10 mg Q4H PRN IV sbp>160 Last administered on 11/26/18at 13:48; Admin Dose 10 MG; Start 11/20/18 at 04:00 IV Flush (NS 3 ml) 3 ml PER PROTOCOL IV ; Start 11/20/18 at 04:30 Ondansetron HCl (Zofran Inj) 4 mg Q6H PRN IV NAUSEA/VOMITING Last administered on 11/24/18 13:24; Admin Dose 4 MG; Start 11/20/18 at 04:30 Acetaminophen (Tylenol Tab) 650 mg Q6H PRN PO .PAIN 1-3 OR TEMP Last administered on 11/24/18at 22:16; Admin Dose 650 MG; Start 11/20/18 at 04:30 Acetaminophen/ Hydrocodone Bitart ([place] (5/325)) 1 tab Q6H PRN PO .PAIN 4-6 Last administered on 11/26/18at 12:51; Admin Dose 1 TAB; Start 11/20/18 at 04:30 Insulin Aspart (Novolog Insulin Pen) NOVOLOG *MILD* ALGORITHM WITH MEALS BEDTIME SC Last administered on 11/23/18 08:14; Admin Dose 1 UNIT; Start 11/20/18 at 08:00 Miscellaneous Information 1 ea NOTE XX ; Start 11/20/18 at 04:30 Glucose (Glutose) 15 gm Q15M PRN PO DECREASED GLUCOSE; Start 11/20/18 at 04:30 Glucose (Glutose) 22.5 gm Q15M PRN PO DECREASED GLUCOSE; Start 11/20/18 at 04:30 Dextrose (D50w Syringe) 25 ml Q15M PRN IV DECREASED GLUCOSE; Start 11/20/18 at 04:30 Dextrose (D50w Syringe) 50 ml Q15M PRN IV DECREASED GLUCOSE; Start 11/20/18 at 04:30 Glucagon (Glucagen) 1 mg Q15M PRN IM DECREASED GLUCOSE; Start 11/20/18 at 04:30 Glucose (Glutose) 15 gm Q15M PRN BUCCAL DECREASED GLUCOSE; Start 11/20/18 at 04:30 Metformin HCl (Glucophage) 850 mg BID WITH MEALS PO Last administered on 11/26/18 08:05; Admin Dose 850 MG; Start 11/20/18 at 11:00 Diagnostic Test (Pha) (Accu-Chek) 1 ea AC MEALS AND BEDTIME XX Last administered on 11/26/18 11:30; Admin Dose 1 EA; Start 11/20/18 at 11:30 Nateglinide (Starlix) 120 mg AC MEALS PO Last administered on 11/26/18 12:47; Admin Dose 120 MG; Start 11/20/18 at 11:30 Sodium Hypochlorite (Dakin'S (Dilute )) 1 applic DAILY IRR Last administered on 11/26/18 08:08; Admin Dose 1 APPLIC; Start 11/21/18 at 09:00 Gentamicin Sulfate (Gentamicin 0.1% Oint) 1 applic DAILY TOP Last administered on 11/26/18 08:08; Admin Dose 1 APPLIC; Start 11/21/18 at 09:00 Trazodone HCl (Desyrel) 50 mg HS PRN PO INSOMNIA; Start 11/21/18 at 00:40 Atorvastatin Calcium (Lipitor) 10 mg HS PO Last administered on 11/25/18at 22:09; Admin Dose 10 MG; Start 11/21/18 at 21:00 Lisinopril (Zestril) 40 mg DAILY PO Last administered on 11/26/18 08:06; Admin Dose 40 MG; Start 11/23/18 at 09:00 Enoxaparin Sodium (Lovenox) 40 mg DAILY SC Last administered on 11/26/18 08:07; Admin Dose 40 MG; Start 11/23/18 at 09:00 Aspirin (Halfprin) 81 mg DAILY PO Last administered on 11/26/18 08:05; Admin Dose 81 MG; Start 11/23/18 at 13:30 Morphine Sulfate (morphine) 6 mg Q4H PRN PO SEVERE PAIN LEVEL 7-10; Start 11/23/18 at 16:30 Al Hydrox/Mg Hydrox/Simethicone (Mag-Al Plus) 30 ml Q6H PRN PO GASTROINTESTINAL UPSET; Start 11/24/18 at 13:30 CHRISTOPHE ROTHMAN DPM Nov 26, 2018 16:29
[2018-11-26 20:00] VITALS: BP 163/72; PULSE 81; RESP 18
[2018-11-26] MEDS: ATORVASTATIN 10 MG TAB PO SCH (21:46)
[2018-11-26] MEDS: ACETAMINOPHEN 325 MG TAB PO PRN (21:46)
[2018-11-26 23:06] VITALS: BP 114/55; PULSE 80
[2018-11-27 02:05] VITALS: BP 116/55; PULSE 73; RESP 16
[2018-11-27] MEDS: ACCU-CHEK XX SCH ×4 (07:00→20:45)
[2018-11-27 07:37] VITALS: BP 149/70; PULSE 72; RESP 16
[2018-11-27] MEDS: INSULIN ASPART [NOVOLOG] 3 ML PEN SC SCH ×4 (08:00→20:44)
[2018-11-27] MEDS: NATEGLINIDE 120 MG TAB PO SCH ×3 (08:22→17:36)
[2018-11-27] MEDS: metFORMIN 850 MG TAB PO SCH ×2 (08:22→17:36)
[2018-11-27] MEDS: LISINOPRIL 20 MG TAB PO SCH (08:23)
[2018-11-27] MEDS: ASPIRIN (EC) 81 MG TAB PO SCH (08:23)
[2018-11-27] MEDS: ENOXAPARIN 40 MG/0.4 ML SYG SC SCH (08:25)
[2018-11-27] MEDS: SODIUM HYPOCHLORITE (1/40) 1 APPLIC BTL IRR SCH (08:28)
[2018-11-27] MEDS: GENTAMICIN 0.1% 15 GM OINT TOP SCH (08:28)
--- NOTE | 2018-11-27 13:26 | PN ---
Date/Time of Note Date/Time of Note DATE: 11/27/18 TIME: 13:14 Assessment/Plan VTE Prophylaxis Risk score (from Nsg)>0 risk: 3 SCD applied (from Nsg): Yes Pharmacological prophylaxis: heparin Lines/Catheters IV Catheter Type (from Nrs): Saline Lock Assessment/Plan Hospital Course 63 yo male with DMII, PAD, HTN presenting with OM of toe OM of toe, diabetic foot ulcer: - s/p debridement 11/26 - Angiogram pending for Thursday - No abx indicated given poor flow DMII: - Basal/bolus insulin PAD: - Aspirin and statin Hypertension: - Lisinopril Discharge to self care. Awaiting podiatry management. Medically stable for outpatient care otherwise Result Diagram: 11/24/18 1345 11/24/18 1345 Results 24hrs Laboratory Tests Test 11/26/18 17:23 11/26/18 21:49 11/27/18 08:20 11/27/18 12:51 Bedside Glucose 84 97 111 93 Subjective 24 Hr Interval Summary Free Text/Dictation Had debridement yesterday Plan for angiogram on Thursday Patient comfortable, no complaints Exam/Review of Systems Exam Vitals Vital Signs Date Temp Pulse Resp B/P (MAP) Pulse Ox O2 O2 Flow FiO2 Time Delivery Rate 11/27/18 98.6 72 16 149/70 93 Room Air 07:37 (96) Intake and Output 11/26/18 11/26/18 11/27/18 1414:59 22:59 06:59 IntakeIntake Total 360 ml 680 ml 120 ml OutputOutput Total 1100 ml 600 ml 300 ml BalanceBalance -740 ml 80 ml -180 ml Constitutional: alert, oriented, well developed Psych: no complaints, nl mood/affect Head: normocephalic, atraumatic Eyes: nl conjunctiva, EOMI, nl lids, nl sclera, PERRL ENMT: nl external ears & nose, nl lips & teeth, nl nasal mucosa & septum Neck: supple, non-tender Respiratory: clear to auscultation, normal air movement Cardiovascular: regular rate and rhythm, nl pulses Gastrointestinal: soft, nl liver, spleen, non-tender Musculoskeletal: nl extremities to inspection, nl gait and stance Extremities: normal pulses Neurological: BANDSAW OPERATOR II-XII 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, nl mental status, nl speech, nl strength Skin: nl turgor; No rash or lesions Lymph: nl lymph nodes Results Results 24hrs Laboratory Tests Test 11/26/18 17:23 11/26/18 21:49 11/27/18 08:20 11/27/18 12:51 Bedside Glucose 84 97 111 93 Medications Medication Current Medications Hydralazine HCl (Apresoline) 10 mg Q4H PRN IV sbp>160 Last administered on 11/26/18 21:45; Admin Dose 10 MG; Start 11/20/18 at 04:00 IV Flush (NS 3 ml) 3 ml PER PROTOCOL IV ; Start 11/20/18 at 04:30 Ondansetron HCl (Zofran Inj) 4 mg Q6H PRN IV NAUSEA/VOMITING Last administered on 11/24/18 13:24; Admin Dose 4 MG; Start 11/20/18 at 04:30 Acetaminophen (Tylenol Tab) 650 mg Q6H PRN PO .PAIN 1-3 OR TEMP Last administered on 11/26/18 21:46; Admin Dose 650 MG; Start 11/20/18 at 04:30 Acetaminophen/ Hydrocodone Bitart ([place] (5/325)) 1 tab Q6H PRN PO .PAIN 4-6 Last administered on 11/26/18 12:51; Admin Dose 1 TAB; Start 11/20/18 at 04:30 Insulin Aspart (Novolog Insulin Pen) NOVOLOG *MILD* ALGORITHM WITH MEALS BEDTIME SC Last administered on 11/23/18 08:14; Admin Dose 1 UNIT; Start 11/20/18 at 08:00 Miscellaneous Information 1 ea NOTE XX ; Start 11/20/18 at 04:30 Glucose (Glutose) 15 gm Q15M PRN PO DECREASED GLUCOSE; Start 11/20/18 at 04:30 Glucose (Glutose) 22.5 gm Q15M PRN PO DECREASED GLUCOSE; Start 11/20/18 at 04:30 Dextrose (D50w Syringe) 25 ml Q15M PRN IV DECREASED GLUCOSE; Start 11/20/18 at 04:30 Dextrose (D50w Syringe) 50 ml Q15M PRN IV DECREASED GLUCOSE; Start 11/20/18 at 04:30 Glucagon (Glucagen) 1 mg Q15M PRN IM DECREASED GLUCOSE; Start 11/20/18 at 04:30 Glucose (Glutose) 15 gm Q15M PRN BUCCAL DECREASED GLUCOSE; Start 11/20/18 at 04:30 Metformin HCl (Glucophage) 850 mg BID WITH MEALS PO Last administered on 11/27/18 08:22; Admin Dose 850 MG; Start 11/20/18 at 11:00 Diagnostic Test (Pha) (Accu-Chek) 1 ea AC MEALS AND BEDTIME XX Last administered on 11/27/18 11:30; Admin Dose 1 EA; Start 11/20/18 at 11:30 Nateglinide (Starlix) 120 mg AC MEALS PO Last administered on 11/27/18 12:57; Admin Dose 120 MG; Start 11/20/18 at 11:30 Sodium Hypochlorite (Dakin'S (Dilute )) 1 applic DAILY IRR Last administered on 11/27/18 08:28; Admin Dose 1 APPLIC; Start 11/21/18 at 09:00 Gentamicin Sulfate (Gentamicin 0.1% Oint) 1 applic DAILY TOP Last administered on 11/27/18 08:28; Admin Dose 1 APPLIC; Start 11/21/18 at 09:00 Trazodone HCl (Desyrel) 50 mg HS PRN PO INSOMNIA; Start 11/21/18 at 00:40 Atorvastatin Calcium (Lipitor) 10 mg HS PO Last administered on 11/26/18 21:46; Admin Dose 10 MG; Start 11/21/18 at 21:00 Lisinopril (Zestril) 40 mg DAILY PO Last administered on 11/27/18 08:23; Admin Dose 40 MG; Start 11/23/18 at 09:00 Enoxaparin Sodium (Lovenox) 40 mg DAILY SC Last administered on 11/27/18 08:25; Admin Dose 40 MG; Start 11/23/18 at 09:00 Aspirin (Halfprin) 81 mg DAILY PO Last administered on 11/27/18 08:23; Admin Dose 81 MG; Start 11/23/18 at 13:30 Morphine Sulfate (morphine) 6 mg Q4H PRN PO SEVERE PAIN LEVEL 7-10; Start 11/23/18 at 16:30 Al Hydrox/Mg Hydrox/Simethicone (Mag-Al Plus) 30 ml Q6H PRN PO GASTROINTESTINAL UPSET; Start 11/24/18 at 13:30 TJ JUAREZ MD Nov 27, 2018 13:26
[2018-11-27] MEDS: HYDROCODONE/APAP (5/325) TAB PO PRN ×2 (14:15→20:44)
[2018-11-27 14:17] VITALS: BP 142/72; PULSE 83; RESP 17
[2018-11-27] MEDS: ACETAMINOPHEN 325 MG TAB PO PRN (17:18)
[2018-11-27 20:01] VITALS: BP 171/79; PULSE 73; RESP 16
[2018-11-27] MEDS: hydrALAzine 20 MG INJ IV PRN (20:43)
[2018-11-27] MEDS: ATORVASTATIN 10 MG TAB PO SCH (20:44)
[2018-11-27 23:14] VITALS: BP 128/61; PULSE 71
[2018-11-28 02:23] VITALS: BP 112/57; PULSE 70; RESP 17
[2018-11-28] MEDS: ACCU-CHEK XX SCH ×4 (07:00→20:25)
[2018-11-28 07:13] VITALS: BP 158/72; PULSE 70; RESP 16
[2018-11-28] MEDS: INSULIN ASPART [NOVOLOG] 3 ML PEN SC SCH ×4 (08:00→20:26)
[2018-11-28] MEDS: ASPIRIN (EC) 81 MG TAB PO SCH (08:05)
[2018-11-28] MEDS: metFORMIN 850 MG TAB PO SCH ×2 (08:05→17:17)
[2018-11-28] MEDS: NATEGLINIDE 120 MG TAB PO SCH ×3 (08:05→17:17)
[2018-11-28] MEDS: LISINOPRIL 20 MG TAB PO SCH (08:06)
[2018-11-28] MEDS: ENOXAPARIN 40 MG/0.4 ML SYG SC SCH (08:08)
[2018-11-28] MEDS: GENTAMICIN 0.1% 15 GM OINT TOP SCH (08:09)
[2018-11-28] MEDS: SODIUM HYPOCHLORITE (1/40) 1 APPLIC BTL IRR SCH (08:09)
[2018-11-28] MEDS: HYDROCODONE/APAP (5/325) TAB PO PRN (13:39)
[2018-11-28] MEDS: ONDANSETRON 4 MG INJ IV PRN (13:41)
[2018-11-28 14:04] VITALS: BP 177/85; PULSE 74; RESP 17
--- NOTE | 2018-11-28 15:02 | PN ---
Date/Time of Note Date/Time of Note DATE: 11/28/18 TIME: 15:01 Assessment/Plan VTE Prophylaxis Risk score (from Nsg)>0 risk: 2 SCD applied (from Nsg): Yes Pharmacological prophylaxis: heparin Lines/Catheters IV Catheter Type (from Nrsg): Saline Lock Assessment/Plan Hospital Course 63 yo male with DMII, PAD, HTN presenting with OM of toe OM of toe, diabetic foot ulcer with severe occulsive arterial disease: - s/p debridement 11/26 - Angiogram pending for Thursday by Dr Garcia - No abx indicated given poor flow DMII: - Basal/bolus insulin PAD: - Aspirin and statin Hypertension: - Lisinopril Discharge plan: likely to self care. plan pending angiogram on Thursday Result Diagram: 11/24/18 1345 11/24/18 1345 Results 24hrs Laboratory Tests Test 11/27/18 17:35 11/27/18 20:42 11/28/18 08:04 11/28/18 12:51 Bedside Glucose 82 70 114 104 Subjective 24 Hr Interval Summary Free Text/Dictation No distress No symptoms Plan for angiogram tomorrow Exam/Review of Systems Exam Vitals Vital Signs Date Temp Pulse Resp B/P (MAP) Pulse Ox O2 O2 Flow FiO2 Time Delivery Rate 11/28/18 98.4 74 17 177/85 97 Room Air 14:04 (115) Intake and Output 11/27/18 11/27/18 11/28/18 1414:59 22:59 06:59 IntakeIntake Total 600 ml 240 ml 200 ml OutputOutput Total 350 ml 400 ml BalanceBalance 250 ml 240 ml -200 ml Constitutional: alert, oriented, well developed Psych: no complaints, nl mood/affect Head: normocephalic, atraumatic Eyes: nl conjunctiva, EOMI, nl lids, nl sclera, PERRL ENMT: nl external ears & nose, nl lips & teeth, nl nasal mucosa & septum Neck: supple, non-tender Respiratory: clear to auscultation, normal air movement Cardiovascular: regular rate and rhythm, nl pulses Gastrointestinal: soft, nl liver, spleen, non-tender Musculoskeletal: nl extremities to inspection, nl gait and stance Extremities: normal pulses Neurological: MECHANIC FIELD SERVICE II-XII intact, nl mental status, nl speech, nl strength Skin: nl turgor; No rash or lesions Lymph: nl lymph nodes Results Results 24hrs Laboratory Tests Test 11/27/18 17:35 11/27/18 20:42 11/28/18 08:04 11/28/18 12:51 Bedside Glucose 82 70 114 104 Medications Medication Current Medications Hydralazine HCl (Apresoline) 10 mg Q4H PRN IV sbp>160 Last administered on 11/27/18at 20:43; Admin Dose 10 MG; Start 11/20/18 at 04:00 IV Flush (NS 3 ml) 3 ml PER PROTOCOL IV ; Start 11/20/18 at 04:30 Ondansetron HCl (Zofran Inj) 4 mg Q6H PRN IV NAUSEA/VOMITING Last administered on 11/28/18 13:41; Admin Dose 4 MG; Start 11/20/18 at 04:30 Acetaminophen (Tylenol Tab) 650 mg Q6H PRN PO .PAIN 1-3 OR TEMP Last administered on 11/27/18 17:18; Admin Dose 650 MG; Start 11/20/18 at 04:30 Acetaminophen/ Hydrocodone Bitart ([place] (5/325)) 1 tab Q6H PRN PO .PAIN 4-6 Last administered on 11/28/18 13:39; Admin Dose 1 TAB; Start 11/20/18 at 04:30 Insulin Aspart (Novolog Insulin Pen) NOVOLOG *MILD* ALGORITHM WITH MEALS BEDTIME SC Last administered on 11/23/18 08:14; Admin Dose 1 UNIT; Start 11/20/18 at 08:00 Miscellaneous Information 1 ea NOTE XX ; Start 11/20/18 at 04:30 Glucose (Glutose) 15 gm Q15M PRN PO DECREASED GLUCOSE; Start 11/20/18 at 04:30 Glucose (Glutose) 22.5 gm Q15M PRN PO DECREASED GLUCOSE; Start 11/20/18 at 04:30 Dextrose (D50w Syringe) 25 ml Q15M PRN IV DECREASED GLUCOSE; Start 11/20/18 at 04:30 Dextrose (D50w Syringe) 50 ml Q15M PRN IV DECREASED GLUCOSE; Start 11/20/18 at 04:30 Glucagon (Glucagen) 1 mg Q15M PRN IM DECREASED GLUCOSE; Start 11/20/18 at 04:30 Glucose (Glutose) 15 gm Q15M PRN BUCCAL DECREASED GLUCOSE; Start 11/20/18 at 04:30 Metformin HCl (Glucophage) 850 mg BID WITH MEALS PO Last administered on 11/28/18 08:05; Admin Dose 850 MG; Start 11/20/18 at 11:00 Diagnostic Test (Pha) (Accu-Chek) 1 ea AC MEALS AND BEDTIME XX Last administered on 11/28/18 11:30; Admin Dose 1 EA; Start 11/20/18 at 11:30 Nateglinide (Starlix) 120 mg AC MEALS PO Last administered on 11/28/18 12:52; Admin Dose 120 MG; Start 11/20/18 at 11:30 Sodium Hypochlorite (Dakin'S (Dilute )) 1 applic DAILY IRR Last adm inistered on 11/28/18 08:09; Admin Dose 1 APPLIC; Start 11/21/18 at 09:00 Gentamicin Sulfate (Gentamicin 0.1% Oint) 1 applic DAILY TOP Last administered on 11/28/18 08:09; Admin Dose 1 APPLIC; Start 11/21/18 at 09:00 Trazodone HCl (Desyrel) 50 mg HS PRN PO INSOMNIA; Start 11/21/18 at 00:40 Atorvastatin Calcium (Lipitor) 10 mg HS PO Last administered on 11/27/18 20:44; Admin Dose 10 MG; Start 11/21/18 at 21:00 Lisinopril (Zestril) 40 mg DAILY PO Last administered on 11/28/18 08:06; Admin Dose 40 MG; Start 11/23/18 at 09:00 Enoxaparin Sodium (Lovenox) 40 mg DAILY SC Last administered on 11/28/18 08:08; Admin Dose 40 MG; Start 11/23/18 at 09:00 Aspirin (Halfprin) 81 mg DAILY PO Last administered on 11/28/18 08:05; Admin Dose 81 MG; Start 11/23/18 at 13:30 Morphine Sulfate (morphine) 6 mg Q4H PRN PO SEVERE PAIN LEVEL 7-10; Start 11/23/18 at 16:30 Al Hydrox/Mg Hydrox/Simethicone (Mag-Al Plus) 30 ml Q6H PRN PO GASTROINTESTINAL UPSET; Start 11/24/18 at 13:30 TJ JUAREZ MD Nov 28, 2018 15:02
[2018-11-28] MEDS: hydrALAzine 20 MG INJ IV PRN ×2 (15:28→20:20)
[2018-11-28 17:02] VITALS: BP 168/69
[2018-11-28 19:49] VITALS: BP 176/79; PULSE 80; RESP 16
[2018-11-28] MEDS: ATORVASTATIN 10 MG TAB PO SCH (20:20)
[2018-11-28 22:30] VITALS: BP 131/63; PULSE 79
[2018-11-29] MEDS: INSULIN ASPART [NOVOLOG] 3 ML PEN SC SCH ×6 (01:00→20:03)
[2018-11-29] MEDS: HYDROCODONE/APAP (5/325) TAB PO PRN ×3 (01:17→20:00)
[2018-11-29 01:20] VITALS: BP 143/66; PULSE 71; RESP 16
[2018-11-29 06:50] VITALS: BP 151/72; PULSE 78; RESP 16
[2018-11-29] MEDS: ACCU-CHEK XX SCH ×4 (06:50→20:00)
[2018-11-29] MEDS: NATEGLINIDE 120 MG TAB PO SCH ×3 (07:00→17:42)
[2018-11-29] MEDS ORDERED: IODIXANOL LOCM 100 ML BTL ONE ×2 (07:27→08:09)
[2018-11-29] MEDS ORDERED: LIDOCAINE 1% (MDV) 20 ML INJ ONE (07:27)
[2018-11-29] MEDS ORDERED: HEPARIN 1000 UNITS/ML 10 ML INJ ONE (08:09)
--- NOTE | 2018-11-29 08:12 | SIPON ---
Date/Time of Note Date/Time of Note DATE: 11/29/18 TIME: 08:11 Operative Report Preoperative Diagnosis R foot gangrene Postoperative Diagnosis same Operation/Procedure Performed aortogram, SECURITY MANAGEMENT SPECIALIST R anterior tibial and peroneal arteries Surgeon see signature line or assistant none Anesthesia: other Estimated blood loss: minimal Transfusion Required none Specimen none Grafts/Implants none Complications none CONSUELO PATRICK MD Nov 29, 2018 08:12
[2018-11-29] MEDS: CLOPIDOGREL 75 MG TAB PO SCH ×2 (09:00→12:21)
[2018-11-29] MEDS: ENOXAPARIN 40 MG/0.4 ML SYG SC SCH (09:00)
[2018-11-29] MEDS: ASPIRIN (EC) 81 MG TAB PO SCH (09:03)
[2018-11-29] MEDS: metFORMIN 850 MG TAB PO SCH ×2 (09:03→17:42)
[2018-11-29] MEDS: LISINOPRIL 20 MG TAB PO SCH (09:03)
[2018-11-29] MEDS: SODIUM HYPOCHLORITE (1/40) 1 APPLIC BTL IRR SCH (09:05)
[2018-11-29] MEDS: GENTAMICIN 0.1% 15 GM OINT TOP SCH (09:05)
[2018-11-29 09:08] VITALS: BP 155/69; PULSE 70; RESP 20
[2018-11-29] MEDS ORDERED: EPINEPHrine 0.1 MG/ML SYG ONE (10:13)
[2018-11-29] MEDS ORDERED: EPHEDrine SULFATE 50 MG/5 ML SYG ONE (10:15)
[2018-11-29] MEDS ORDERED: DOPamine-D5W 1.6 MG/ML 250 ML ONE (10:38)
[2018-11-29] MEDS ORDERED: BIVALIRUDIN 250MG /NS 50 ML 100 ML IVPB ONE (10:38)
[2018-11-29] MEDS ORDERED: NA BICARBONATE 8.4% 50 ML SYG ONE (10:38)
[2018-11-29] MEDS ORDERED: NORepinephrine 8MG/250 ML (PMX 250 ML ONE (10:39)
[2018-11-29] MEDS ORDERED: EPTIFIBATIDE 100 ML IV ONE (10:56)
[2018-11-29] MEDS ORDERED: EPTIFIBATIDE 20 ML ONE (10:56)
--- NOTE | 2018-11-29 12:26 | OPR ---
DATE OF OPERATION: 11/29/2018 PREOPERATIVE DIAGNOSIS: Right first toe dry gangrene. POSTOPERATIVE DIAGNOSIS: Right first toe dry gangrene. PROCEDURE PERFORMED: Abdominal aortogram with bilateral lower extremity runoff and percutaneous ismael oplasty of right anterior tibial and peroneal arteries. SURGEON: Consuelo Garcia MD ANESTHESIA: Local anesthesia. ESTIMATED BLOOD LOSS: Minimal. COMPLICATIONS: No intraprocedural complications. INDICATIONS: A 63-year-old diabetic hypertensive gentleman with peripheral arterial disease. He pre sented with gangrene of the right first toe tip. He had arterial duplexes suggested tibial disease b rought him in today for an angiogram and possible intervention. I found diffuse tibial disease and a ngioplastied his entire peroneal artery and the anterior tibial artery from its origin all the way do wn to the ankle. The posterior tibial artery is occluded and dorsalis pedis artery is occluded. The re is reconstitution of some plantar branches from the peroneal. PROCEDURE: The patient was brought to the crown and bridge dental lab technician, placed on the table in the supine position. Lef t groin was prepped and draped in the usual sterile fashion. I began by using ultrasound to identify the left common femoral artery, I infiltrated over the artery using about 10 mL of 1% Xylocaine. I used a micropuncture needle to enter the left common femoral artery under ultrasound guidance. An 0. 018 wire was inserted through the needle into the artery, then a micropuncture sheath was advanced ov er the wire into the artery. I then advanced an 0.035 Bentson wire into the infrarenal abdominal aor ta, exchanged the micropuncture sheath for a 5-Niuean sheath over wire. Advanced a rim catheter over the wire and into the infrarenal aorta, did an aortogram and then advanced the catheter up and over the bifurcation using an Advantage wire for support, advanced the catheter down into the right SFA an d then did runoff down the right lower extremity. FINDINGS OF ANGIOGRAPHY: The infrarenal aorta is widely patent. The common external and internal il iac arteries bilaterally are widely patent. Both common, superficial and profunda femoral arteries a re widely patent. The right popliteal artery is patent above and below the knee. Below the knee, th ere is 2-vessel runoff. Initially, posterior tibial artery is occluded at its origin. Peroneal and anterior tibial arteries are patent. The peroneal artery has multiple areas of subtotal occlusion th roughout its length, but is patent all the way down to the ankle. Anterior tibial artery also has mu ltiple areas of subtotal occlusion and severe stenosis and stops at the ankle with some collaterals c oming off of the very distal anterior tibial artery. The dorsalis pedis artery is occluded and does not reconstitute. The posterior tibial artery is completely occluded. There is a plantar artery and probably a medial plantar artery that reconstitutes from the peroneal artery. We decided to treat t he peroneal and anterior tibial as far down as I could to get as much perfusion into the foot as poss ible. I then gave the patient 5000 units of heparin intravenously. I used the Advantage wire advanc ed down into the below knee pop and then exchanged the sheath for a 6-Niuean 65 cm Destination which I left in the popliteal artery. I then used a Command wire to engage first the peroneal artery, I ad vanced the Command wire all the way down into the distal branches of the peroneal and I angioplastied the entire peroneal artery using a 2.5 mm balloon to 14 atmospheres for 2 minute inflation. Complet ion angiogram showed no significant residual stenosis or couple of areas where there is heavy calcifi cation but no stenosis. There was now brisk flow down into the foot through the peroneal. I then br ought the wire back and engaged the anterior tibial artery. I then advanced the Command wire all the way down to the ankle and the anterior tibial. The anterior tibial occluded at that segment. I cou ldn't get it to go further down into the foot, but I was able to get the wire into one of the small b ranches at the terminal portion of the anterior tibial, right at the ankle and then angioplastied the entire anterior tibial artery using the same balloon; the 2.5 x 22 cm balloon to 14 atmospheres. Co mpletion angiogram showed the anterior tibial artery is now widely patent. It still terminated at th e ankle, but there were some collaterals going into the foot and there is actually a tremendous numbe r of collaterals in the foot coming off of the peroneal and anterior tibials and there is really no t arget vessel in the foot for bypass. I think this is about as good circulation as he is going to get . I then removed all the catheter sheaths and wires, that confirmed the left groin puncture was in t he common femoral artery, and then used a 6-Niuean Angio-Seal to close the puncture site. Sterile dr essing was applied. The patient was then transferred to his room in stable condition. He tolerated the procedure well without any complications. Dictated By: CONSUELO BEACH/EVELYN Conf#: [id number] DID#: [id number] CC: CHRISTOPHE ROTHMAN; TJ JUAREZ MD; JAY JAY MONSIVAIS DPM;*EndCC*
[2018-11-29 16:14] VITALS: BP 162/75; PULSE 81; RESP 20
--- NOTE | 2018-11-29 16:33 | PN ---
Date/Time of Note Date/Time of Note DATE: 11/29/18 TIME: 16:32 Assessment/Plan VTE Prophylaxis Risk score (from Ns)>0 risk: 2 SCD applied (from Ns): Yes Pharmacological prophylaxis: NA/contraindicated Pharm contraindication: surgical contra Lines/Catheters [facility] Saline Lock Assessment/Plan Hospital Course 63 yo male with DMII, PAD, HTN presenting with OM of toe OM of toe, diabetic foot ulcer with severe occlusive arterial disease: - s/p debridement 11/26 - Angiogram today with Dr Garcia - No abx indicated given poor flow DMII: - Basal/bolus insulin PAD: - Aspirin and statin Hypertension: - Lisinopril Discharge plan: Angio today Results 24hrs Laboratory Tests Test 11/28/18 17:16 11/28/18 20:25 11/29/18 01:14 11/29/18 04:47 Bedside Glucose 133 107 104 106 Test 11/29/18 06:52 11/29/18 08:47 11/29/18 12:17 Bedside Glucose 95 217 127 Subjective 24 Hr Interval Summary Constitutional: no complaints Exam/Review of Systems Exam Vitals Vital Signs Date Temp Pulse Resp B/P (MAP) Pulse Ox O2 O2 Flow FiO2 Time Delivery Rate 11/29/18 97.6 81 20 162/75 95 16:14 (104) 11/29/18 Room Air 06:50 Intake and Output 11/28/18 11/28/18 11/29/18 1515:00 23:00 07:00 IntakeIntake Total 360 ml 240 ml OutputOutput Total 400 ml 125 ml 200 ml BalanceBalance -40 ml 115 ml -200 ml Constitutional: alert Respiratory: clear to auscultation Cardiovascular: regular rate and rhythm Gastrointestinal: soft; No distended Musculoskeletal: No nl extremities to inspection Results Results 24hrs Laboratory Tests Test 11/28/18 17:16 11/28/18 20:25 11/29/18 01:14 11/29/18 04:47 Bedside Glucose 133 107 104 106 Test 11/29/18 06:52 11/29/18 08:47 11/29/18 12:17 Bedside Glucose 95 217 127 Medications Medication Current Medications Hydralazine HCl (Apresoline) 10 mg Q4H PRN IV sbp>160 Last administered on 11/28/18at 20:20; Admin Dose 10 MG; Start 11/20/18 at 04:00 IV Flush (NS 3 ml) 3 ml PER PROTOCOL IV ; Start 11/20/18 at 04:30 Ondansetron HCl (Zofran Inj) 4 mg Q6H PRN IV NAUSEA/VOMITING Last administered on 11/28/18 13:41; Admin Dose 4 MG; Start 11/20/18 at 04:30 Acetaminophen (Tylenol Tab) 650 mg Q6H PRN PO .PAIN 1-3 OR TEMP Last administered on 11/27/18 17:18; Admin Dose 650 MG; Start 11/20/18 at 04:30 Acetaminophen/ Hydrocodone Bitart ([place] (5/325)) 1 tab Q6H PRN PO .PAIN 4-6 Last administered on 11/29/18 09:09; Admin Dose 1 TAB; Start 11/20/18 at 04:30 Miscellaneous Information 1 ea NOTE XX ; Start 11/20/18 at 04:30 Glucose (Glutose) 15 gm Q15M PRN PO DECREASED GLUCOSE; Start 11/20/18 at 04:30 Glucose (Glutose) 22.5 gm Q15M PRN PO DECREASED GLUCOSE; Start 11/20/18 at 04:30 Dextrose (D50w Syringe) 25 ml Q15M PRN IV DECREASED GLUCOSE; Start 11/20/18 at 04:30 Dextrose (D50w Syringe) 50 ml Q15M PRN IV DECREASED GLUCOSE; Start 11/20/18 at 04:30 Glucagon (Glucagen) 1 mg Q15M PRN IM DECREASED GLUCOSE; Start 11/20/18 at 04:30 Glucose (Glutose) 15 gm Q15M PRN BUCCAL DECREASED GLUCOSE; Start 11/20/18 at 04:30 Metformin HCl (Glucophage) 850 mg BID WITH MEALS PO Last administered on 11/29/18 09:03; Admin Dose 850 MG; Start 11/20/18 at 11:00 Diagnostic Test (Pha) (Accu-Chek) 1 ea AC MEALS AND BEDTIME XX Last administ ered on 11/29/18 06:50; Admin Dose 1 EA; Start 11/20/18 at 11:30 Nateglinide (Starlix) 120 mg AC MEALS PO Last administered on 11/29/18 12:21; Admin Dose 120 MG; Start 11/20/18 at 11:30 Sodium Hypochlorite (Dakin'S (Dilute )) 1 applic DAILY IRR Last administered on 11/29/18 09:05; Admin Dose 1 APPLIC; Start 11/21/18 at 09:00 Gentamicin Sulfate (Gentamicin 0.1% Oint) 1 applic DAILY TOP Last administered on 11/29/18 09:05; Admin Dose 1 APPLIC; Start 11/21/18 at 09:00 Trazodone HCl (Desyrel) 50 mg HS PRN PO INSOMNIA; Start 11/21/18 at 00:40 Atorvastatin Calcium (Lipitor) 10 mg HS PO Last administered on 11/28/18 20:20; Admin Dose 10 MG; Start 11/21/18 at 21:00 Lisinopril (Zestril) 40 mg DAILY PO Last administered on 11/29/18 09:03; Admin Dose 40 MG; Start 11/23/18 at 09:00 Enoxaparin Sodium (Lovenox) 40 mg DAILY SC Last administered on 11/28/18 08:08; Admin Dose 40 MG; Start 11/23/18 at 09:00 Aspirin (Halfprin) 81 mg DAILY PO Last administered on 11/29/18 09:03; Admin Dose 81 MG; Start 11/23/18 at 13:30 Morphine Sulfate (morphine) 6 mg Q4H PRN PO SEVERE PAIN LEVEL 7-10; Start 11/23/18 at 16:30 Al Hydrox/Mg Hydrox/Simethicone (Mag-Al Plus) 30 ml Q6H PRN PO GASTROINTESTINAL UPSET; Start 11/24/18 at 13:30 Clopidogrel Bisulfate (plaVIX) 75 mg DAILY PO Last administered on 11/29/18 12:21; Admin Dose 75 MG; Start 11/29/18 at 09:00 Insulin Aspart (Novolog Insulin Pen) NOVOLOG *MILD* ALGORITHM AC MEALS AND BEDTIME SC ; Start 11/29/18 at 12:30 SAE WRAY Nov 29, 2018 16:33
--- NOTE | 2018-11-29 18:52 | PN ---
Date/Time of Note Date/Time of Note DATE: 11/29/18 TIME: 18:51 Assessment/Plan VTE Prophylaxis Risk score (from Nsg)>0 risk: 2 Pharmacological prophylaxis: other Lines/Catheters IV Catheter Type (from Nrsg): Saline Lock Assessment/Plan Assessment/Plan 1. Right foot cutaneous ulceration with gangrene. Differential diagnosis osteomyelitis, distal phalanx. 2. Diabetes type 2 with peripheral neuropathy. 3. Peripheral arterial disease. Plan: Patient underwent angiogram with intervention yesterday with peroneal run off and collaterals from anterior tibial artery. Discussed surgical partial amputation of the hallux as there is some bone exposed. Patient wanted time to think about it. Wound cultures staph aureus. Recommend daily dressing changes. Patient will need health insurance to follow up in outpatient clinic. [facility] clinic is an alternate option. Results 24hrs Laboratory Tests Test 11/28/18 20:25 11/29/18 01:14 11/29/18 04:47 11/29/18 06:52 Bedside Glucose 107 104 106 95 Test 11/29/18 08:47 11/29/18 12:17 11/29/18 17:24 Bedside Glucose 217 127 107 Subjective 24 Hr Interval Summary Free Text/Dictation No acute events overnight. Exam/Review of Systems Exam Vitals Vital Signs Date Temp Pulse Resp B/P (MAP) Pulse Ox O2 O2 Flow FiO2 Time Delivery Rate 11/29/18 97.6 81 20 162/75 95 16:14 (104) 11/29/18 Room Air 06:50 Intake and Output 11/28/18 11/28/18 11/29/18 1414:59 22:59 06:59 IntakeIntake Total 360 ml 240 ml OutputOutput Total 400 ml 125 ml 200 ml BalanceBalance -40 ml 115 ml -200 ml Exam nonpalpable PT, DP or popliteal pulse. The DP artery on the right foot is palpable and heavily calcified. There is a cutaneous gangrene of the right hallux distal aspect measuring approximately 2 x 1 cm depth that is undetermined, but well adhered. There was scant purulence appreciated to the lateral aspect of the gangrene site. There is portion of the distal phalanx exposed bone. There is pain with palpation. No instability of the hallux at the IPJ or MPJ Non invasive arterial studies: IMPRESSION: Monophasic waveforms in the bilateral posterior tibial and dorsalis pedis arteries, suggesting inflow disease into the bilateral lower legs. If further characterization of the arterial vasculature is needed CTA is recommended. Results Results 24hrs Laboratory Tests Test 11/28/18 20:25 11/29/18 01:14 11/29/18 04:47 11/29/18 06:52 Bedside Glucose 107 104 106 95 Test 11/29/18 08:47 11/29/18 12:17 11/29/18 17:24 Bedside Glucose 217 127 107 Medications Medication Current Medications Hydralazine HCl (Apresoline) 10 mg Q4H PRN IV sbp>160 Last administered on 11/28/18at 20:20; Admin Dose 10 MG; Start 11/20/18 at 04:00 IV Flush (NS 3 ml) 3 ml PER PROTOCOL IV ; Start 11/20/18 at 04:30 Ondansetron HCl (Zofran Inj) 4 mg Q6H PRN IV NAUSEA/VOMITING Last administered on 11/28/18at 13:41; Admin Dose 4 MG; Start 11/20/18 at 04:30 Acetaminophen (Tylenol Tab) 650 mg Q6H PRN PO .PAIN 1-3 OR TEMP Last administered on 11/27/18at 17:18; Admin Dose 650 MG; Start 11/20/18 at 04:30 Acetaminophen/ Hydrocodone Bitart ([place] (5/325)) 1 tab Q6H PRN PO .PAIN 4-6 Last administered on 11/29/18at 09:09; Admin Dose 1 TAB; Start 11/20/18 at 04:30 Miscellaneous Information 1 ea NOTE XX ; Start 11/20/18 at 04:30 Glucose (Glutose) 15 gm Q15M PRN PO DECREASED GLUCOSE; Start 11/20/18 at 04:30 Glucose (Glutose) 22.5 gm Q15M PRN PO DECREASED GLUCOSE; Start 11/20/18 at 04:30 Dextrose (D50w Syringe) 25 ml Q15M PRN IV DECREASED GLUCOSE; Start 11/20/18 at 04:30 Dextrose (D50w Syringe) 50 ml Q15M PRN IV DECREASED GLUCOSE; Start 11/20/18 at 04:30 Glucagon (Glucagen) 1 mg Q15M PRN IM DECREASED GLUCOSE; Start 11/20/18 at 04:30 Glucose (Glutose) 15 gm Q15M PRN BUCCAL DECREASED GLUCOSE; Start 11/20/18 at 04:30 Metformin HCl (Glucophage) 850 mg BID WITH MEALS PO Last administered on 11/29/18 17:42; Admin Dose 850 MG; Start 11/20/18 at 11:00 Diagnostic Test (Pha) (Accu-Chek) 1 ea AC MEALS AND BEDTIME XX Last administered on 11/29/18 06:50; Admin Dose 1 EA; Start 11/20/18 at 11:30 Nateglinide (Starlix) 120 mg AC MEALS PO Last administered on 11/29/18 17:42; Admin Dose 120 MG; Start 11/20/18 at 11:30 Sodium Hypochlorite (Dakin'S (Dilute )) 1 applic DAILY IRR Last administered on 11/29/18 09:05; Admin Dose 1 APPLIC; Start 11/21/18 at 09:00 Gentamicin Sulfate (Gentamicin 0.1% Oint) 1 applic DAILY TOP Last administered on 11/29/18 09:05; Admin Dose 1 APPLIC; Start 11/21/18 at 09:00 Trazodone HCl (Desyrel) 50 mg HS PRN PO INSOMNIA; Start 11/21/18 at 00:40 Atorvastatin Calcium (Lipitor) 10 mg HS PO Last administered on 11/28/18 20:20; Admin Dose 10 MG; Start 11/21/18 at 21:00 Lisinopril (Zestril) 40 mg DAILY PO Last administered on 11/29/18 09:03; Admin Dose 40 MG; Start 11/23/18 at 09:00 Enoxaparin Sodium (Lovenox) 40 mg DAILY SC Last administered on 11/28/18 08:08; Admin Dose 40 MG; Start 11/23/18 at 09:00 Aspirin (Halfprin) 81 mg DAILY PO Last administered on 11/29/18 09:03; Admin Dose 81 MG; Start 11/23/18 at 13:30 Morphine Sulfate (morphine) 6 mg Q4H PRN PO SEVERE PAIN LEVEL 7-10; Start 11/23/18 at 16:30 Al Hydrox/Mg Hydrox/Simethicone (Mag-Al Plus) 30 ml Q6H PRN PO GASTROINTESTINAL UPSET; Start 11/24/18 at 13:30 Clopidogrel Bisulfate (plaVIX) 75 mg DAILY PO Last administered on 11/29/18at 12:21; Admin Dose 75 MG; Start 11/29/18 at 09:00 Insulin Aspart (Novolog Insulin Pen) NOVOLOG *MILD* ALGORITHM AC MEALS AND BEDTIME SC ; Start 11/29/18 at 12:30 CHRISTOPHE ROTHMAN DPM Nov 29, 2018 18:52
[2018-11-29] MEDS: hydrALAzine 20 MG INJ IV PRN (19:59)
[2018-11-29] MEDS: ATORVASTATIN 10 MG TAB PO SCH (20:00)
[2018-11-29 20:11] VITALS: BP 187/86; PULSE 81; RESP 19
[2018-11-29 21:00] VITALS: BP 125/58; PULSE 92
[2018-11-29] MEDS ORDERED: INSULIN ASPART [NOVOLOG] 3 ML PEN SC SCH (21:00)
[2018-11-29] MEDS: ONDANSETRON 4 MG INJ IV PRN (22:55)
[2018-11-30 02:39] VITALS: BP 126/59; PULSE 75; RESP 19
[2018-11-30] MEDS: ACCU-CHEK XX SCH ×3 (07:00→18:02)
[2018-11-30 07:47] VITALS: BP 131/60; PULSE 70; RESP 20
[2018-11-30] MEDS: CLOPIDOGREL 75 MG TAB PO SCH (08:56)
[2018-11-30] MEDS: LISINOPRIL 20 MG TAB PO SCH (08:57)
[2018-11-30] MEDS: ASPIRIN (EC) 81 MG TAB PO SCH (08:58)
[2018-11-30] MEDS: NATEGLINIDE 120 MG TAB PO SCH ×3 (08:58→18:02)
[2018-11-30] MEDS: metFORMIN 850 MG TAB PO SCH ×2 (08:58→18:02)
[2018-11-30] MEDS: SODIUM HYPOCHLORITE (1/40) 1 APPLIC BTL IRR SCH (08:59)
[2018-11-30] MEDS: GENTAMICIN 0.1% 15 GM OINT TOP SCH (08:59)
[2018-11-30] MEDS: INSULIN ASPART [NOVOLOG] 3 ML PEN SC SCH ×3 (09:01→17:30)
[2018-11-30] MEDS: ENOXAPARIN 40 MG/0.4 ML SYG SC SCH (09:01)
[2018-11-30 13:25] VITALS: BP 164/74; PULSE 72; RESP 20
[2018-11-30] MEDS: ONDANSETRON 4 MG INJ IV PRN (13:47)
--- NOTE | 2018-11-30 15:37 | DS ---
Date/Time of Note Date/Time of Note DATE: 11/30/18 TIME: 15:31 Discharge Summary Admission/Discharge Info Admit Date/Time Nov 19, 2018 at 23:36 Discharge Date/Time November 30, 2018 Discharge Diagnosis Right foot cutaneous ulceration with gangrene- Differential diagnosis osteomyelitis, distal phalanx with severe occlusive arterial disease: - s/p debridement 11/26 -Status post angiogram with Dr Garcia -Status post antibiotics, ID consultation appreciated -Follow-up at [facility] DMII: -Continue home regimen PAD: - Aspirin and statin Hypertension: - Lisinopril Patient Condition: Good Hospital Course Patient is a 63 yo male with DMII, PAD, HTN presenting with OM of toe. Patient was seen by vascular, podiatry and ID. Patient underwent a debridement as well as an angiogram. Patient did receive IV antibiotics but ID did not believe the patient required further antibiotics as he had dry gangrene. Patient was stable for DC, on the day of discharge patient's vitals, labs, physical exam are stable. Home Meds Active Scripts Aspirin* (Aspirin* EC) 81 Mg Tablet., 81 MG PO DAILY for 30 Days, TAB Prov:NIMISHA ENGLE MD 11/23/18 Sulfamethoxazole/Trimethoprim* (Bactrim Ds* Tablet) 1 Each Tablet, 1 TAB PO BID for 7 Days, TAB Prov:NIMISHA ENGLE MD 11/23/18 Nateglinide* (Nateglinide*) 120 Mg Tablet, 120 MG PO AC MEALS for 30 Days, TAB Prov:NIMISHA ENGLE MD 11/23/18 Metformin* (Glucophage*) 850 Mg Tablet, 850 MG PO BID WITH MEALS for 30 Days, TAB Prov:NIMISHA ENGLE MD 11/23/18 Lisinopril* (Lisinopril*) 20 Mg Tablet, 40 MG PO DAILY for 30 Days, TAB Prov:NIMISHA ENGLE MD 11/23/18 Atorvastatin (Atorvastatin) 10 Mg Tablet, 10 MG PO HS for 30 Days, TAB Prov:NIMISHA ENGLE MD 11/23/18 Follow-up Plan PCP in one week Dr. Roland in one week Dr. Alonzo in one week Primary Care Provider [facility] Time spent on discharge: > 30 minutes SAE WRAY Nov 30, 2018 15:37
== END 2018-11-30 20:15 | disposition home or self-care (01) | DRG 253 ==
LOC: FTE 16:08 → 2NE 23:36
PROVIDERS: ADMIT Internal Medicine; ATTEND Internal Medicine
PROC: 047P3ZZ Dilation of Right Anterior Tibial Artery, Percutaneous Approach (ICD-10-PCS; principal; 2018-11-19)
PROC: 0JBQ0ZZ Excision of Right Foot Subcutaneous Tissue and Fascia, Open Approach (ICD-10-PCS; 2018-11-26)
PROC: 047T3ZZ Dilation of Right Peroneal Artery, Percutaneous Approach (ICD-10-PCS; 2018-11-29)
PROC: B41DYZZ Fluoroscopy of Aorta and Bilateral Lower Extremity Arteries using Other Contrast (ICD-10-PCS; 2018-11-29)
DX: E11.52 Type 2 diabetes mellitus with diabetic peripheral angiopathy with gangrene (principal); I96 Gangrene, not elsewhere classified; M86.9 Osteomyelitis, unspecified; E11.621 Type 2 diabetes mellitus with foot ulcer; E11.65 Type 2 diabetes mellitus with hyperglycemia; Z79.84 Long term (current) use of oral hypoglycemic drugs; E11.69 Type 2 diabetes mellitus with other specified complication; I10 Essential (primary) hypertension; L03.031 Cellulitis of right toe; D64.9 Anemia, unspecified; E78.5 Hyperlipidemia, unspecified; E11.42 Type 2 diabetes mellitus with diabetic polyneuropathy
CPT/HCPCS: 36415; 73620; 73630; 73718; 75630; 80053; 80061; 80069; 80202; 82565; 82728; 82962; 83036; 83540; 83605; 83735; 84443; 84520; 85025; 85610; 85651; 85730; 86140; 87040; 87070; 93922; 96361; 96365; 96367; 96372; C1725; C1760; C1769; C1887; C1894; J0171; J0360; J0583; J0692; J1265; J1327; J1644; J1650; J1815; J2270; J2405; J3370; J7030; J7050; Q9967